=== PATIENT | female | born 1960 | race Caucasian/White ===

== ENCOUNTER → 2017-07-05 20:10 | Outpatient (CLI) | payer OTHER, SELFPAY ==
[2017-07-09 09:05] LABS: HPV Reflexed? NOT INDICATED
== END ==
PROVIDERS: Visit Provider Obstetrics & Gynecology
DX: Z12.4 Encounter for screening for malignant neoplasm of cervix (principal)
CPT/HCPCS: 88175; G0145

== ENCOUNTER 2017-07-07 11:24 | Day surgery (SDC) | payer OTHER, SELFPAY ==
[2017-07-07] VITALS (7 sets, daily range): BP systolic 81–112; BP diastolic 41–72; PULSE 90–103; RESP 18; TEMP 36.9–37.4; O2SAT 95–97
--- NOTE | 2017-07-07 | IMM_PTH ---
PATIENT: AARON REYNOLDS LOC: EN U#:[id number] AGE/SX: 56/F ROOM: RE07/07/[address]: Dr. Gage Resendiz MD : 1960 BED: DIS: 07/07/2017 SPEC #: [id number] RECD: 07/08/17 10:20 STATUS: DAISY RENicole #: [id number] EZEQUIEL: 07/07/17 00:[address]: Gage Resendiz DEPT: IMMUNOHISTOCHEMISTRY RECD BY: Katharine Dean ENTERED: 07/08/17 10:20 SP TYPE: IMMUNO OTHR DR: Dr. Chad Carias MD Tissues: Stomach, NOS Procedures: H Pylori (initial) PHYSICIAN & INSTITUTION [place] [id number] SPECIMEN INFORMATION: Tissue Source: Antral biopsy Clinical Info: GERD Specimen Number: [id number] CPT code: 40370 METHODOLOGY: Deparaffinized sections of prefer/formalin-fixed tissue or PAP/DQ stained slides are incubated with monoclonal/polyclonal antibodies/oligonucleotide probes. Localization is made via biotin free immunoperoxidase method. Appropriate controls are performed and reacted as expected. Results on target cell population are indicated in the following table: RESULTS: ANTIBODY / CLONE RESULT H Pylori (polyclonal) negative These tests were developed and their performance characteristics determined by [facility]. They may not have been cleared or approved by the U.S. Food and Drug Administration. The FDA has determined that such clearance or approval is not necessary. INTERPRETATION: Antral biopsy: Negative for Helicobacter pylori organisms. AM:cecile 07/11/17
--- NOTE | 2017-07-07 | GASB_PTH ---
PATIENT: AARON REYNOLDS LOC: EN U#:[id number] AGE/SX: 56/F ROOM: RE07/07/[address]: Dr. Gage Resendiz MD : 1960 BED: DIS: 07/07/2017 SPEC #: [id number] RECD: 07/07/17 14:37 STATUS: DAISY RUBY #: [id number] EZEQUIEL: 07/07/17 00:[address]: Gage Resendiz DEPT: SURGICAL PATHOLOGY RECD BY: Jose Tucker ENTERED: 07/07/17 14:37 SP TYPE: Gastric Bx OTHR DR: Dr. Chad Carias MD Tissues: Gastric mucous membrane Procedures: Surgery Specimen Level IV HEADER OPERATION: EGD PRE-OP DIAGNOSIS: GERD TISSUE SUBMITTED: Antral biopsy MICROSCOPIC DIAGNOSIS Gastric antrum, biopsy: Gastritis. AM:cecile 07/08/17 COMMENT The results of immunohistochemistry for Helicobacter pylori will be reported separately ([id number]). MICROSCOPIC DESCRIPTION Slides are reviewed. Sections show small collections and groups of plasma cells in the mucosa. Active inflammation is not present. These findings are consistent with mild chronic gastritis. GROSS DESCRIPTION Received in fixative is one container labeled with the patient's name and designated antral biopsy. The specimen consists of two irregular fragments of light oakes soft tissue that in aggregate measure 0.4 x 0.4 x 0.1 cm. The specimen is totally submitted in one cassette. / SJ:rg 07/07/17 TC:3 CPT: 47844
--- NOTE | 2017-07-07 14:11 | PCM.OP.BLANK ---
Operative Report Date of Procedure: 07/07/17 Preop diagnosis: Patient with chest pain and reflux Postop diagnosis: EGD with biopsy diffuse gastritis noted small sliding hiatal hernia noted. Anesthesia: Provided the MAC Instrument: Olympus upper endoscope Informed consent was taken prior to procedure. The patient was brought to the endoscopy suite[ she] was placed left shoulder down.Anesthesia provided the MAC. The scope was passed under direct visualization down into the esophagus. The proximal to mid esophagus appeared normal the distal Z line was intact there is no evidence of Weathers's mucosa there was a small sliding hiatal hernia. The stomach was easily insufflated there were multiple fundic gland polyps noted. The prepyloric area there were erosions noted bulbar duodenum was normal the sweep of duodenum was normal withdrawn back into the stomach retroflexion view the cardia is well-seen there is no evidence of a hiatal hernia there are multiple fundic gland polyps noted. Biopsies of the antral mucosa were taken in the area of erosions for pathology, stomach was decompressed and the patient tolerated procedure well. Impression: Symptomatic reflux with a small sliding hiatal hernia she has some erosions noted in the gastric mucosa ,fundic gland polyps noted Plan: Follow-up the biopsies may continue on a PPI alternate day.
== END 2017-07-07 15:04 | disposition home or self-care (01) ==
LOC: EN 11:25 → ACINP 11:27 → AC 13:21
PROVIDERS: Family Provider Family Medicine; PCP Family Medicine; Visit Provider Internal Medicine Gastroenterology
PROC: 0DJ08ZZ Inspection of Upper Intestinal Tract, Via Natural or Artificial Opening Endoscopic (ICD-10-PCS; CPT 43235; principal; 2017-07-07 13:25)
DX: K29.70 Gastritis, unspecified, without bleeding (principal); K44.9 Diaphragmatic hernia without obstruction or gangrene; R07.9 Chest pain, unspecified; K21.9 Gastro-esophageal reflux disease without esophagitis
CPT/HCPCS: 43239; 88305; 88342; J7120

== ENCOUNTER → 2018-09-19 18:14 | Outpatient (CLI) | payer OTHER, SELFPAY ==
[2018-07-20 11:10] VITALS: BMI 27.1
[2018-09-22 13:23] LABS: HPV Reflexed? NOT INDICATED
== END ==
PROVIDERS: Family Provider Family Medicine; PCP Family Medicine; Referring Provider Obstetrics & Gynecology; Visit Provider Obstetrics & Gynecology
DX: Z12.4 Encounter for screening for malignant neoplasm of cervix (principal)
CPT/HCPCS: 88175; G0145

== ENCOUNTER → 2018-10-10 | Outpatient (CLI) | payer OTHER, SELFPAY ==
[2018-07-20 11:10] VITALS: BMI 27.1
[2018-10-10 17:32] LABS: Absolute Neutrophil Count 3.6 X10^3/uL (2.0-7.7); Basophil# 0.01 X10^3/uL; Basophil% 0.2 % (0-1); Eosinophils% 1.9 % (0-5); Hematocrit 37.7 % (37-47); Hemoglobin 13.2 g/dl (12.0-15.0); Lymphocyte % 23.2 % (19-41); Mean Corpuscular Hgb 28.9 pg (27.0-32.0); Mean Corpuscular Volume 82.7 fL (81-99); Mean Platelet Vol. 10.2 fl (6.2-12.0); Monocyte% 5.8 % (0-10); Neutrophil # 3.56 X10^3/uL (2.7-7.7); Neutrophil % 68.9 % (47-70); POSITIVE COUNT NO; POSITIVE DIFFERENTIAL NO; POSITIVE MORPHOLOGY NO; Platelet Count 253 K/mm3 (150-450); RBC Distribution Width SD 38.8 fl (35.1-43.9); Red Blood Count 4.56 M/mm3 (4.2-5.4); White Blood Count 5.2 K/mm3 (4.4-11.0)
[2018-10-10 17:54] LABS: Anion Gap 9 (5-15); BUN 16 mg/dL (7-18); BUN/Creat Ratio 15.2 RATIO (10-20); Calcium,Total 8.6 mg/dL (8.5-10.1); Chloride 106 mmol/L (98-107); Creatinine, Serum 1.05 mg/dL (0.55-1.02); EST Glomerular Filtration Rate 57 mL/min (>60); Est Glom Filt Rate - Afr Amer 69 mL/min (>60); Glucose 98 mg/dL (74-106); Potassium 3.2 mmol/L (3.5-5.1); Sodium Level 141 mmol/L (136-145)
== END | disposition home or self-care (01) ==
LOC: BFHLAB 16:44
PROVIDERS: Family Provider Family Medicine; PCP Family Medicine; Visit Provider Family Medicine
DX: R10.31 Right lower quadrant pain (principal); I10 Essential (primary) hypertension
CPT/HCPCS: 36415; 80048; 85025

== ENCOUNTER → 2018-10-23 | Outpatient (CLI) | payer OTHER, SELFPAY ==
[2018-07-20 11:10] VITALS: BMI 27.1
--- NOTE | 2018-10-23 13:18 | BI_ITS ---
MAMMOGRAPHY - BILATERAL SCREENING REASON FOR EXAM: Female, 57 years old. Routine annual screening examination. PERTINENT HISTORY: Non-contributory. TECHNIQUE: Digital bilateral breast vini (3D mammographic acquisition) in the CC and MLO projections. 2-D mediolateral oblique (MLO) and craniocaudad (CC) views of both breasts were obtained. CAD: Full Field Digital Mammography with Computer Added Detection was performed. COMPARISON: Comparison is made with prior study dated June 21, 2017 and July 12, 2016. FINDINGS: Breast Composition: There are scattered areas of fibroglandular density. There are no dominant masses or suspicious calcifications. No other significant abnormalities are identified. There has been no significant change since the prior study. BI/SCREENING MAMM (CAD), BILAT IMPRESSION: Stable bilateral screening mammogram. Yearly follow-up mammogram recommended. (A) ASSESSMENT CATEGORY: BIRADS Category 1: Negative. A letter regarding these results will be sent to the patient by the facility within 30 days. Approximately 10% of breast cancers are not detected by mammography. A normal mammogram should not delay biopsy of a clinically suspicious abnormality. [id number] Electronically Signed: Gael Miller, at 15:19 EDT , Service support ,
== END | disposition home or self-care (01) ==
LOC: OPBI 13:17
PROVIDERS: Family Provider Family Medicine; PCP Family Medicine; Referring Provider Obstetrics & Gynecology; Visit Provider Obstetrics & Gynecology
DX: Z12.31 Encounter for screening mammogram for malignant neoplasm of breast (principal)
CPT/HCPCS: 77063; 77067

== ENCOUNTER → 2018-10-31 | Outpatient (CLI) | payer OTHER, SELFPAY ==
[2018-07-20 11:10] VITALS: BMI 27.1
--- NOTE | 2018-10-31 17:40 | CT_ITS ---
STUDY: CT ABDOMEN AND PELVIS WITH CONTRAST REASON FOR EXAM: Female, 57 years old. Right lower quadrant right leg pain RADIATION DOSAGE (If Supplied By Facility): CTDIvol = ( 13.43 ) mGy, DLP = ( 926.71 ) mGycm TECHNIQUE: Transaxial images were obtained from the dome of the diaphragm to the symphysis pubis without oral contrast. 100ml IV/Oral Isovue 300 was administered. Sagittal and coronal images were reconstructed. Individualized dose optimization techniques were used for this CT. COMPARISON: None. FINDINGS: The visualized lung bases are unremarkable. The visualized portions of the heart are within normal limits. Normal liver. Normal gallbladder and extrahepatic biliary system. Normal spleen. Normal pancreas. Normal bilateral adrenal glands. Probable extrarenal pelvis of the right kidney. Normal left kidney. Normal visualized stomach. Normal small intestine. Diffuse mild fecal retention in the colon. The appendix is visualized and appears normal. Normal abdominal aorta. Normal inferior vena cava. Normal retroperitoneum. Normal urinary bladder. Normal uterus. Normal abdominal wall. Normal osseous structures. CT/Abdomen/Pelvis WITH Contrast IMPRESSION: Mild fecal retention diffusely. No bowel obstruction. Electronically Signed: Dewayne Hicks DO at 19:47 EDT Tel [phone], Service support ,
== END | disposition home or self-care (01) ==
LOC: CT 15:41
PROVIDERS: Family Provider Family Medicine; PCP Family Medicine; Referring Provider Family Medicine; Visit Provider Family Medicine
DX: R10.31 Right lower quadrant pain (principal); M79.604 Pain in right leg
CPT/HCPCS: 74177; Q9967

== ENCOUNTER → 2019-11-14 09:01 | Outpatient (CLI) | payer OTHER, SELFPAY ==
[2018-07-20 11:10] VITALS: BMI 27.1
--- NOTE | 2019-11-14 09:07 | RAD_ITS ---
STUDY: X-RAY - SACRUM/COCCYX REASON FOR EXAM: Female, 59 years old. Persistent/worsening pain, s/p fall a year ago, rule out lytic/blastic lesions TECHNIQUE: 3 view(s) of the sacrum and coccyx were obtained. COMPARISON: None. FINDINGS: There is degenerative arthrosis of the bilateral sacroiliac joints. Normal visualized sacral ala and fused sacral bodies. Normal sacrococcygeal junction with a normal angulation. Normal coccygeal segments. The presacral soft tissue structures are unremarkable. RAD/Sacrum-Coccyx min 2 Views IMPRESSION: No acute abnormality is seen. Electronically Signed: Gael Miller, at 10:45 EDT , Service support ,
== END ==
PROVIDERS: PCP Family Medicine; Referring Provider Family Medicine; Visit Provider Family Medicine
DX: M53.3 Sacrococcygeal disorders, not elsewhere classified (principal)
CPT/HCPCS: 72220

== ENCOUNTER → 2020-02-27 07:33 | Outpatient (CLI) | payer OTHER, SELFPAY ==
[2018-07-20 11:10] VITALS: BMI 27.1
--- NOTE | 2020-02-27 07:37 | BI_ITS ---
MAMMOGRAPHY - BILATERAL SCREENING REASON FOR EXAM: Female, 59 years old. Routine annual screening examination. PERTINENT HISTORY: Non-contributory. Occasional left breast tenderness. TECHNIQUE: Digital bilateral breast carlos (3D mammographic acquisition) in the CC and MLO projections. 2-D mediolateral oblique (MLO) and craniocaudad (CC) views of both breasts were obtained. CAD: Full Field Digital Mammography with Computer Added Detection was performed. COMPARISON: Comparison is made with prior study dated 10/23/2018 and 06/21/2017. FINDINGS: Breast Composition: There are scattered areas of fibroglandular density. There are no dominant masses or suspicious calcifications. Stable benign-appearing bilateral axillary lymph nodes. No other significant abnormalities are identified. There has been no significant change since the prior study. BI/SCREEN MAMM (CAD) W/CARLOS BILAT IMPRESSION: Stable bilateral screening mammogram. Yearly follow-up mammogram recommended. (A) ASSESSMENT CATEGORY: BIRADS Category 2: Benign. A letter regarding these results will be sent to the patient by the facility within 30 days. Approximately 10% of breast cancers are not detected by mammography. A normal mammogram should not delay biopsy of a clinically suspicious abnormality. [id number] Electronically Signed: Gael Miller, at 9:39 EDT , Service support ,
== END ==
PROVIDERS: PCP Family Medicine; Referring Provider Obstetrics & Gynecology; Visit Provider Obstetrics & Gynecology
DX: Z12.31 Encounter for screening mammogram for malignant neoplasm of breast (principal)
CPT/HCPCS: 77063; 77067

== ENCOUNTER → 2020-04-08 11:59 | Outpatient (CLI) | payer OTHER, SELFPAY ==
[2018-07-20 11:10] VITALS: BMI 27.1
[2020-04-08 15:35] LABS: Absolute Lymphocyte Count 1.56 X10^3/uL (0.83-4.51); Basophil# 0.04 X10^3/uL; Basophil% 0.6 % (0-1); Eosinophil# 0.16 X10^3/uL; Eosinophils% 2.2 % (0-5); Hemoglobin 14.5 g/dL (12.0-15.0); Lymphocyte # 1.56 X10^3/ul (4.0); Lymphocyte % 21.7 % (19-41); Mean Corp Hgb Conc 34.5 g/dL (32-36); Mean Corpuscular Volume 86.8 fL (81-99); Mean Platelet Vol. 10.8 fl (6.2-12.0); Monocyte# 0.41 X10^3/uL; Monocyte% 5.7 % (0-10); NRBC Flagged by Analyzer 0 % (0-5); Neutrophil # 5.01 X10^3/uL (2.7-7.7); Neutrophil % 69.5 % (47-70); Platelet Count 311 K/mm3 (150-450); RBC Distribution Width CV 12.5 % (11.6-14.6); RBC Distribution Width SD 39.6 fl (35.1-43.9); Red Blood Count 4.84 M/mm3 (4.2-5.4); White Blood Count 7.2 K/mm3 (4.4-11.0)
[2020-04-08 15:49] LABS: AST(SGOT) 25 U/L (15-37); Alanine Aminotransfer ALT/SGPT 50 U/L (13-56); Albumin, Serum 3.9 g/dL (3.2-5.0); Alkaline Phosphatase 106 U/L (45-117); Anion Gap 6 (5-15); BUN 14 mg/dL (7-18); BUN/Creat Ratio 14.2 RATIO (10-20); Calcium,Total 9.2 mg/dL (8.5-10.1); Chloride 103 mmol/L (98-107); Creatinine, Serum 0.98 mg/dL (0.55-1.02); EST Glomerular Filtration Rate 61 mL/min (>60); Est Glom Filt Rate - Afr Amer 74 mL/min (>60); Globulin 3.9 g/dL (2.2-4.2); Glucose 87 mg/dL (74-106); Lipase 323 U/L (73-393); Potassium 3.7 mmol/L (3.5-5.1); Protein, Total 7.8 g/dL (6.4-8.2); Sodium Level 140 mmol/L (136-145)
== END ==
PROVIDERS: PCP Family Medicine; Visit Provider Family Medicine
DX: I10 Essential (primary) hypertension (principal); R10.13 Epigastric pain
CPT/HCPCS: 36415; 80053; 83690; 85025

== ENCOUNTER → 2020-05-13 07:47 | Outpatient (CLI) | payer OTHER, SELFPAY ==
[2018-07-20 11:10] VITALS: BMI 27.1
--- NOTE | 2020-05-13 07:49 | US_ITS ---
STUDY: ABDOMINAL ULTRASOUND - RIGHT UPPER QUADRANT REASON FOR VISIT: Female, 59 years old ABD PAIN -- S/P XENIA TECHNIQUE: Ultrasound evaluation of the right upper quadrant was performed with real-time and static ford-scale imaging. TECHNICAL QUALITY: Adequate. COMPARISON: Comparison is made with prior study dated 07/23/2016. FINDINGS: Liver: The liver measures 13.6 cm. There is increased echogenicity consistent with fatty infiltration. The bile ducts are within normal limits. There is hepatic color flow. The direction of portal flow is hepatopetal. There is no demonstrated mass lesion. Focal fatty sparing is seen in the region of the gallbladder fossa. Gallbladder: The patient is status post cholecystectomy. Common Bile Duct (C.B.D.): The common bile duct measures 8.1 mm. Pancreas: Normal size of the head, body and tail of the pancreas. There is normal echogenicity of the pancreas. There is no demonstrated pancreatic mass or cyst. Right Kidney: Normal size of the right kidney. The right kidney measures 10.3 cm x 4.8 cm x 3.9 cm. Normal renal cortex. The right cortex measures 1.0 cm. There is no demonstrated renal mass or cyst. There is no right hydronephrosis. US/Abdomen Limited IMPRESSION: Fatty infiltration of the liver with focal fatty sparing. Electronically Signed: Gael Miller, at 8:44 EST , Service support ,
== END ==
PROVIDERS: PCP Family Medicine; Referring Provider Internal Medicine Gastroenterology; Visit Provider Internal Medicine Gastroenterology
DX: R10.9 Unspecified abdominal pain (principal)
CPT/HCPCS: 76705

== ENCOUNTER → 2020-05-16 10:05 | Outpatient (CLI) | payer OTHER, SELFPAY ==
[2018-07-20 11:10] VITALS: BMI 27.1
[2020-05-16 12:25] LABS: AST(SGOT) 22 U/L (15-37); Alanine Aminotransfer ALT/SGPT 44 U/L (13-56); Albumin, Serum 3.8 g/dL (3.2-5.0); Alkaline Phosphatase 102 U/L (45-117); Globulin 3.7 g/dL (2.2-4.2); Lipase 266 U/L (73-393); Protein, Total 7.5 g/dL (6.4-8.2)
== END ==
PROVIDERS: PCP Family Medicine; Referring Provider Internal Medicine Gastroenterology; Visit Provider Internal Medicine Gastroenterology
DX: R10.9 Unspecified abdominal pain (principal)
CPT/HCPCS: 36415; 80076; 83690

== ENCOUNTER → 2020-09-15 16:12 | Outpatient (CLI) | payer BC, SELFPAY ==
[2018-07-20 11:10] VITALS: BMI 27.1
[2020-09-15 18:19] LABS: Creatinine, Serum 1.04 mg/dL (0.55-1.02); EST Glomerular Filtration Rate 57 mL/min (>60); Est Glom Filt Rate - Afr Amer 69 mL/min (>60)
== END ==
PROVIDERS: PCP Family Medicine; Referring Provider Otolaryngology; Visit Provider Otolaryngology
DX: H90.42 Sensorineural hearing loss, unilateral, left ear, with unrestricted hearing on the contralateral side (principal)
CPT/HCPCS: 36415; 82565

== ENCOUNTER → 2020-09-25 17:38 | Outpatient (CLI) | payer BC, SELFPAY ==
[2018-07-20 11:10] VITALS: BMI 27.1
--- NOTE | 2020-09-25 17:41 | MRI_ITS ---
STUDY: MRI BRAIN WITH AND WITHOUT CONTRAST (ATTENTION INTERNAL AUDITORY CANALS - I.A.C.''s) REASON FOR EXAM: Female, 59 years old. L HEARING LOSS TECHNIQUE: Standardized multiplanar fat and water weighted pulse sequences were obtained. IV 15ml Dotarem was administered for the contrast portion of the examination. COMPARISON: None. FINDINGS: Normal bilateral temporal bones. Normal bilateral internal auditory canals. There is no demonstrated intracanalicular or cisternal vestibular schwannoma (acoustic neuroma). There is no enhancement of the bilateral VIIth or VIIIth cranial nerves. Normal bilateral cochlea, vestibules and semicircular canals. Normal size of the ventricles and extra-axial spaces for the patient''s age. Normal white matter tracts of the supratentorial brain. Normal bilateral basal ganglia. Normal thalami. Normal flow voids within the major intracranial circulation suggesting patency by spin echo criteria. Normal venous enhancement. There is no enhancing intra-axial or extra-axial abnormality. There is no extra-axial fluid accumulation. Normal sella turcica, pituitary gland, infundibular stalk, optic chiasm and hypothalamus. Normal tectal plate and pineal gland. Normal midbrain, starr and medulla. Normal cerebellum. Normal basal cisterns. No demonstrated orbital abnormality, within the constraints of a routine brain study. Normal visualized paranasal sinuses. Normal calvarium and skull base. Normal visualized soft tissue structures. Normal visualized upper cervical spine. MRI/Brain W/WO Contrast IMPRESSION: Normal unenhanced and enhanced MRI of the bilateral internal auditory canals (I.A.C''s). Electronically Signed: Derrick Stallworth MD at 22:43 EDT , Service support ,
== END ==
PROVIDERS: PCP Family Medicine; Referring Provider Otolaryngology; Visit Provider Otolaryngology
DX: H90.42 Sensorineural hearing loss, unilateral, left ear, with unrestricted hearing on the contralateral side (principal)
CPT/HCPCS: 70553; A9575

== ENCOUNTER → 2021-01-19 14:37 | Outpatient (CLI) | payer BC, SELFPAY ==
[2018-07-20 11:10] VITALS: BMI 27.1
[2021-01-19 18:19] LABS: AST(SGOT) 53 U/L (15-37); Alanine Aminotransfer ALT/SGPT 88 U/L (13-56); Albumin, Serum 4.2 g/dL (3.2-5.0); Alkaline Phosphatase 96 U/L (45-117); Bilirubin, Direct 0.29 mg/dL (0.00-0.30); Globulin 3.6 g/dL (2.2-4.2); Lipase 323 U/L (73-393); Protein, Total 7.8 g/dL (6.4-8.2)
== END ==
PROVIDERS: PCP Family Medicine; Referring Provider Internal Medicine Gastroenterology; Visit Provider Internal Medicine Gastroenterology
DX: R10.9 Unspecified abdominal pain (principal)
CPT/HCPCS: 36415; 80076; 83690

== ENCOUNTER → 2021-03-06 12:07 | Outpatient (CLI) | payer BC, SELFPAY ==
--- NOTE | 2021-03-06 12:08 | BI_ITS ---
MAMMOGRAPHY - BILATERAL SCREENING REASON FOR EXAM: Female, 60 years old. Routine annual screening examination. PERTINENT HISTORY: Non-contributory. TECHNIQUE: Digital bilateral breast carlos (3D mammographic acquisition) in the CC and MLO projections. 2-D mediolateral oblique (MLO) and craniocaudad (CC) views of both breasts were obtained. CAD: Full Field Digital Mammography with Computer Added Detection was performed. COMPARISON: Comparison is made with prior study 02/27/2020 and 10/23/2018. FINDINGS: Breast Composition: There are scattered areas of fibroglandular density. There are no dominant masses or suspicious calcifications. Small benign-appearing bilateral axillary lymph nodes. No other significant abnormalities are identified. There has been no significant change since the prior study. BI/SCRN MAMM (CAD)W/CARLOS BILAT IMPRESSION: Stable bilateral screening mammogram. Yearly follow-up mammogram recommended. (A) ASSESSMENT CATEGORY: BIRADS Category 2: Benign. A letter regarding these results will be sent to the patient by the facility within 30 days. Approximately 10% of breast cancers are not detected by mammography. A normal mammogram should not delay biopsy of a clinically suspicious abnormality. [id number] Electronically Signed: Gael Miller MD at 13:15 EDT , Service support ,
== END ==
PROVIDERS: PCP Family Medicine; Referring Provider Obstetrics & Gynecology; Visit Provider Obstetrics & Gynecology
DX: Z12.31 Encounter for screening mammogram for malignant neoplasm of breast (principal)
CPT/HCPCS: 77063; 77067

== ENCOUNTER → 2022-04-01 | Outpatient (CLI) | payer BC, SELFPAY ==
[2022-04-08 16:02] LABS: HPV APTIMA, High Risk Negative (Negative)
== END | disposition home or self-care (01) ==
LOC: LABSPEC 09:50
PROVIDERS: PCP Family Medicine; Visit Provider Obstetrics & Gynecology
DX: Z12.4 Encounter for screening for malignant neoplasm of cervix (principal)
CPT/HCPCS: 87624; 88175; G0145

== ENCOUNTER → 2022-04-07 | Outpatient (CLI) | payer BC, SELFPAY ==
--- NOTE | 2022-04-07 07:48 | BI_ITS ---
MAMMOGRAPHY - BILATERAL SCREENING REASON FOR EXAM: Female, 61 years old. Routine annual screening examination. PERTINENT HISTORY: Non-contributory. TECHNIQUE: Digital bilateral breast carlos (3D mammographic acquisition) in the CC and MLO projections. 2-D mediolateral oblique (MLO) and craniocaudad (CC) views of both breasts were obtained. CAD: Full Field Digital Mammography with Computer Added Detection was performed. COMPARISON: Comparison is made with prior study dated 03/06/2021 and 02/27/2020. FINDINGS: Breast Composition: There are scattered areas of fibroglandular density. There are no dominant masses or suspicious calcifications. Stable small benign-appearing bilateral axillary lymph nodes. No other significant abnormalities are identified. There has been no significant change since the prior study. BI/SCRN MAMM (CAD)W/CARLOS BILAT IMPRESSION: Stable bilateral screening mammogram. Yearly follow-up mammogram recommended. (A) ASSESSMENT CATEGORY: BIRADS Category 2: Benign. A letter regarding these results will be sent to the patient by the facility within 30 days. Approximately 10% of breast cancers are not detected by mammography. A normal mammogram should not delay biopsy of a clinically suspicious abnormality. [id number] Electronically Signed: Gael Miller MD at 9:14 EDT ,
== END | disposition home or self-care (01) ==
LOC: OPBI 07:46
PROVIDERS: PCP Family Medicine; Visit Provider Obstetrics & Gynecology
DX: Z12.31 Encounter for screening mammogram for malignant neoplasm of breast (principal)
CPT/HCPCS: 77063; 77067

== ENCOUNTER → 2022-05-18 | Outpatient (CLI) | payer BC, SELFPAY ==
--- NOTE | 2022-05-18 16:15 | RAD_ITS ---
STUDY: X-RAY - CERVICAL SPINE REASON FOR EXAM: Female, 61 years old. PAIN TECHNIQUE: 5 view(s) of the cervical spine were obtained. COMPARISON: None FINDINGS: Normal anterior atlantoaxial articulation. Normal odontoid process. Normal cervical lordosis. C5-C6 C6-C7 there is disc space narrowing and spondylosis. There is minimal associated neural foramina narrowing. There is no visualized acute loss of height or alignment. Normal disc space heights. Normal visualized intervertebral neuroforamina. The soft tissue structures are unremarkable. RAD/Cerv Spine 4 or 5 Views IMPRESSION: Degenerative change. No visualized acute loss of height or alignment. Electronically Signed: Jasmin Rizzo MD at 17:56 EST Reading Location ID and State: [facility] / [place] Tel , Service support ,
--- NOTE | 2022-05-18 16:15 | RAD_ITS ---
STUDY: X-RAY - THORACIC SPINE REASON FOR EXAM: Female, 61 years old. PAIN TECHNIQUE: 2 view(s) of the thoracic spine were obtained. COMPARISON: June 30, 2017 thoracic spine x-ray FINDINGS: Normal kyphosis of the thoracic spine. There is no substantial scoliosis. There is minimal spondylosis throughout the thoracic spine without visualized loss of height or alignment. Normal disc space heights. The soft tissue structures are unremarkable. RAD/Thoracic Spine 3 Views IMPRESSION: Mild degenerative change of the thoracic spine. Electronically Signed: Jasmin Rizzo MD at 17:55 EST Reading Location ID and State: [facility] / [place] Tel , Service support ,
== END | disposition home or self-care (01) ==
LOC: MTRAD 16:13
PROVIDERS: PCP Family Medicine; Referring Provider Family Medicine; Visit Provider Family Medicine
DX: M54.6 Pain in thoracic spine (principal); M48.02 Spinal stenosis, cervical region; M47.812 Spondylosis without myelopathy or radiculopathy, cervical region
CPT/HCPCS: 72050; 72072

== ENCOUNTER → 2022-10-12 | Outpatient (CLI) | payer BC, SELFPAY ==
--- NOTE | 2022-10-12 07:20 | US_ITS ---
STUDY: ABDOMINAL ULTRASOUND - LEFT UPPER QUADRANT REASON FOR EXAM: Female, 61 years old. LUQ Pain TECHNIQUE: Transabdominal ultrasound was performed with real-time and static ford scale imaging. TECHNICAL QUALITY: Adequate. COMPARISON: None. FINDINGS: Spleen: Normal size of the spleen. The spleen measures 11.4 cm x 4.4 cm x 4.7 cm. Left Kidney: Normal size of the left kidney. The left kidney measures 10.3 cm x 4.1 cm x 4.9 cm. Normal renal cortex. The left cortex measures 1.6 cm. There is no demonstrated renal mass or cyst. There is no left hydronephrosis. US/Abdomen Limited IMPRESSION: Normal left upper quadrant abdominal ultrasound examination. Electronically Signed: Gael Miller MD at 12:03 EDT ,
== END | disposition home or self-care (01) ==
LOC: US 07:20
PROVIDERS: PCP Internal Medicine; Referring Provider Internal Medicine; Visit Provider Internal Medicine
DX: R10.12 Left upper quadrant pain (principal)
CPT/HCPCS: 76705

== ENCOUNTER → 2023-01-05 | Outpatient (CLI) | payer BC, SELFPAY ==
[2023-01-05 13:08] LABS: Anion Gap 6 (5-15); BUN 16 mg/dL (7-18); Calcium,Total 9.1 mg/dL (8.5-10.1); Chloride 108 mmol/L (98-107); Creatinine, Serum 1.14 mg/dL (0.55-1.02); EST Glomerular Filtration Rate 51 mL/min (>60); Est Glom Filt Rate - Afr Amer 62 mL/min (>60); Glucose 110 mg/dL (74-106); Potassium 3.9 mmol/L (3.5-5.1); Sodium Level 138 mmol/L (136-145); Uric Acid 7.3 mg/dL (2.6-6.0)
== END | disposition home or self-care (01) ==
LOC: BIMLAB 10:57
PROVIDERS: PCP Internal Medicine; Visit Provider Internal Medicine
DX: M10.9 Gout, unspecified (principal); N18.30 Chronic kidney disease, stage 3 unspecified
CPT/HCPCS: 36415; 80048; 84550

== ENCOUNTER → 2023-04-20 | Outpatient (CLI) | payer BC, SELFPAY ==
--- NOTE | 2023-04-20 09:44 | RAD_ITS ---
STUDY: X-RAY - LEFT ELBOW REASON FOR EXAM: Female, 62 years old. Pain following a recent fall. TECHNIQUE: 3 view(s) of the elbow. COMPARISON: None. FINDINGS: Normal visualized humerus, radius and ulna. Normal radiocapitellar and ulnotrochlear articulations. The soft tissue structures are unremarkable. RAD/Elbow min 3 Views IMPRESSION: Normal x-ray examination of the elbow. Electronically Signed: Gael Miller MD at 10:10 EST ,
--- NOTE | 2023-04-20 09:44 | RAD_ITS ---
STUDY: X-RAY - LEFT SHOULDER REASON FOR EXAM: Female, 62 years old. Shoulder pain following a recent fall. TECHNIQUE: 4 view(s) of the shoulder. COMPARISON: None. FINDINGS: Normal glenohumeral articulation. There is degenerative arthrosis of the acromioclavicular joint without inferior osseous spur formation. Normal acromion. Normal humeral head and visualized proximal humerus. The soft tissue structures are unremarkable. Normal visualized pulmonary apex. RAD/Shoulder min 2 Views IMPRESSION: Degenerative changes of the acromial clavicular joint. Electronically Signed: Gael Miller MD at 10:09 [facility] ,
== END | disposition home or self-care (01) ==
PROVIDERS: PCP Internal Medicine; Referring Provider Physician Assistant; Visit Provider Physician Assistant
DX: S59.901A Unspecified injury of right elbow, initial encounter (principal); S49.92XA Unspecified injury of left shoulder and upper arm, initial encounter; S49.91XA Unspecified injury of right shoulder and upper arm, initial encounter; S59.902A Unspecified injury of left elbow, initial encounter
CPT/HCPCS: 73030; 73080

== ENCOUNTER → 2023-04-27 | Outpatient (CLI) | payer BC, SELFPAY ==
[2023-04-27 16:10] LABS: Microalbumin,Random Urine 17.4 mg/L (NO RANGE EST.); Microalbumin:Creatinine Ratio 30.7 mg/g CRE (<30 mg/g CRE)
[2023-04-27 16:15] LABS: Anion Gap 3 (5-15); BUN 19 mg/dL (7-18); BUN/Creat Ratio 16.8 RATIO (10-20); Chloride 106 mmol/L (98-107); Creatinine, Serum 1.13 mg/dL (0.55-1.02); EST Glomerular Filtration Rate 51 mL/min (>60); Est Glom Filt Rate - Afr Amer 62 mL/min (>60); Glucose 100 mg/dL (74-106); Potassium 3.8 mmol/L (3.5-5.1); Sodium Level 141 mmol/L (136-145); Uric Acid 7.1 mg/dL (2.6-6.0)
== END | disposition home or self-care (01) ==
LOC: BIMLAB 14:15
PROVIDERS: PCP Internal Medicine; Referring Provider Internal Medicine; Visit Provider Internal Medicine
DX: I12.9 Hypertensive chronic kidney disease with stage 1 through stage 4 chronic kidney disease, or unspecified chronic kidney disease (principal); N18.30 Chronic kidney disease, stage 3 unspecified
CPT/HCPCS: 36415; 80048; 82043; 82570; 84550

== ENCOUNTER 2023-05-12 11:30 | Outpatient (RCR) | payer BC, SELFPAY ==
--- NOTE | 2023-04-29 09:07 | HP.PTEVAL ---
Patient's Visit Information Visit Information Visit Information: AARON REYNOLDS is a 62 year old F referred to Physical Therapy by ATIF Mcneal with a diagnosis of L shoulder strain.. Date of Evaluation: 04/29/23 Physical Therapist: Mir Spencer, DPT, OCS, CSCS Visit Plan Frequency: 2-3x /Week Duration: 4-6 Weeks Plan: 2-3x/week for 4-6 weeks for 1. activitiy modification , posture adn manual PROM L shoulder 2. US nonthemral to L supra or TENS with ice as needed if painful at rest. 3. scap/postural and RC strength. Subjective Subjective: 2 weeks ago slipped in tub and landed on L arm. Now has pain in L arm b/w shoulder and elbow. Aches much of time. Went [facility] a week later and x rays were Ok. it is improving slowly. Still cannot lift arm out to side. Raising in front is easier but painful. 4/10 at rest most of time. Sometimes doesnt hurt if she is not thinking about it. Was improving until the last 24 hours, drove alot 2 days ago. Sleep is not a big problem but wakes up feeling it. Rolling on it is hard. Employed as a nurse at the hospital , works with hands all day and worse after work but improving overall. Basic ADLs are painful dressing and has to be careful but can do them, Is right handed. Hobbies: Reading is not a problem, yard work can be bothersome but low time of year. Empire decorating will be hard. Denies numbing and tingling. Pain L shoulder/arm: Pain Intensity (Out of 10): 4 Pain Intensity Range: 1 and 7 Objective Objective: L shoulder tender to palpation in supraspinatus and biceps tendon slightly. AROM UE WFL except for L shoulder elevation is slow and painful in abduction especially LLA. flexion is full and painful at end range, er is full but painful end range. IR is full without pain. Most pain is in anterior shoulder and down back of arm. reflexes 2/3 bi and triceps sensation is WFL to gross light touch in UE. Strength wrist adn elbow 4+ and painfree B. scap and cervical aROKM WFL R shoulder elevation 4 and er/ir 4, L shoulder is er 4- and IR 4 and flexion 4- pain and abduction 3+ and pain. - drop arm - er lag - sulcus - labral tests. Balance/Special Test Scores Quick DASH Score: 31.8175 Goals Goal 1:: sleep without pain at night Goal Time Frame: 4-6 Weeks Goal 2:: Painfree at rest and 80% improved in overall pain to 1/10 at worst Goal Time Frame: 4-6 Weeks Goal 3:: I appropriate managment of condition with HEP Goal Time Frame: 4-6 Weeks Goal 4:: Work without inceased pain Goal Time Frame: 4-6 Weeks Goal 5:: quick dash score 15 or better. Goal Time Frame: 4-6 Weeks Rehabilitation Potential Physical Therapy Diagnosis: L shoulder strain, causing difficulty sleeping and moving and pain with work effecting life. Rehabilitation Potential: Good Anticipated Interventions Patient/Client Instruction: Educate patient on: Condition and Risk Factors For the Purpose of:: To decrease pain, To increase ROM, To improve nutrient delivery to tissue, To improve muscle performance and motor function, To increase tolerance to activity/condition/position and To improve ability of physical actions for home/community/work/leisure Therapeutic Exercise to Include: Strength training, Postural training, Passive ROM, Active ROM and Scapular Strength/Stabilization For the Purpose of:: To decrease pain, To decrease swelling/inflammation, To increase ROM, To improve nutrient delivery to tissue, To improve muscle performance and motor function and To increase tolerance to activity/condition/position Manual Therapy Techniques to Include: Mobilization, Passive ROM and Soft tissue mobilization For the Purpose of:: To decrease pain, To decrease swelling/inflammation and To improve nutrient delivery to tissue TENS: Yes Cryotherapy (ice pack, ice massage): Yes Ultrasound (thermal/non thermal): Yes (nonthermal) For the Purpose of:: To decrease pain, To decrease swelling/inflammation and To increase ROM Text: Thank you for the opportunity to evaluate your patient. For Medicare and Medicare HMO plans, please review the plan of care and approve it. It will need to be FAXED BACK to us at [phone] for Medicare purposes. For Medicare only, by signing this I certify the plan of care. Please let me know if there are questions or concerns regarding this plan of care. Physician Signature: Date:
--- NOTE | 2023-05-12 12:16 | HP.PTDCSUM ---
Discharge Summary D/C summary: It has been my pleasure to treat AARON REYNOLDS referred by ATIF Mcneal, with the diagnosis of L shoulder strain. for a total of 5 visit(s). Discharge Date: 05/12/23 Please see the following information for a summary of their discharge status. Subjective Subjective: No better. 80% of time is 4/10 ache in L upper arm and shoulder. Sleeping still very difficult. Not on meds for this. had prednisone initially. No f[facility]u with [facility] but Dr. Matson. Can do her basics at home with care. Trying to do everything. Pain L shoulder/arm: Pain Intensity (Out of 10): 2 Overall Improvement % Improvement: 0 Objective Objective/Function: Full aROM L UE but hesitant past 90 abduction adn flexion shoulder and slow. Good rotations and strength is 3+ flexion abd L and 4 rotations, elevation painful and rotations not so much. - drop arm, - ext rotation lag test. - labral clinical test However pain not improving despite decent strength and ROM. Goals Goal 1:: sleep without pain at night Goal 2:: Painfree at rest and 80% improved in overall pain to 1/10 at worst Goal 3:: I appropriate managment of condition with HEP Goal 4:: Work without inceased pain Goal 5:: quick dash score 15 or better. Plan Plan: Pt to doctor regarding lack of improvement in pain of L shoulder. d/c D/C Information Discharge Comments: to doctor for next medical step(MRI etc) Pt to cotninue HEP in the meantime. pt to call doctor Matson to schedule d/c sentence: If there are questions or concerns regarding this patient's physical therapy, please feel free to call me at [phone]. Thank you for the referral of this patient. Sincerely, Mir Spencer, DPT, OCS, CSCS Balance/Gait/Functional tests Balance/Special Test Scores Quick DASH Score: 29.5450 Improvement % Improvement: 0
== END 2023-05-12 19:00 | disposition home or self-care (01) ==
LOC: PT 11:30
PROVIDERS: PCP Internal Medicine; Referring Provider Physician Assistant; Visit Provider Physician Assistant
DX: S46.912D Strain of unspecified muscle, fascia and tendon at shoulder and upper arm level, left arm, subsequent encounter (principal)
CPT/HCPCS: 97035; 97110; 97161; 97164

== ENCOUNTER → 2023-09-05 | Outpatient (CLI) | payer BC, SELFPAY ==
--- NOTE | 2023-09-05 14:12 | BI_ITS ---
MAMMOGRAPHY - BILATERAL SCREENING REASON FOR EXAM: Female, 62 years old. Routine annual screening examination. PERTINENT HISTORY: Non-contributory. TECHNIQUE: Digital bilateral breast carlos (3D mammographic acquisition) in the CC and MLO projections. 2-D mediolateral oblique (MLO) and craniocaudad (CC) views of both breasts were obtained. CAD: Full Field Digital Mammography with Computer Added Detection was performed. COMPARISON: Comparison is made with prior study April 07, 2022 and March 06, 2021. FINDINGS: Breast Composition: There are scattered areas of fibroglandular density. There are no dominant masses or suspicious calcifications. Stable small benign-appearing bilateral axillary lymph nodes. No other significant abnormalities are identified. There has been no significant change since the prior study. BI/SCRN MAMM (CAD)W/CARLOS BILAT IMPRESSION: Stable bilateral screening mammogram. Yearly follow-up mammogram recommended. (A) ASSESSMENT CATEGORY: BIRADS Category 2: Benign. A letter regarding these results will be sent to the patient by the facility within 30 days. Approximately 10% of breast cancers are not detected by mammography. A normal mammogram should not delay biopsy of a clinically suspicious abnormality. [id number] Electronically Signed: Gael Miller MD at 9:45 EDT ,
== END | disposition home or self-care (01) ==
LOC: OPBI 14:12
PROVIDERS: PCP Internal Medicine; Referring Provider Nurse Practitioner; Visit Provider Nurse Practitioner
DX: Z12.31 Encounter for screening mammogram for malignant neoplasm of breast (principal)
CPT/HCPCS: 77063; 77067

== ENCOUNTER → 2024-02-02 | Outpatient (CLI) | payer MEDICARE, OTHER, SELFPAY ==
--- NOTE | 2024-02-02 08:55 | BD_ITS ---
STUDY: DUAL ENERGY X-RAY ABSORPTIOMETRY / DXA REASON FOR EXAM: Female, 63 years old. Screening for osteoporosis TECHNIQUE: Bone Mineral Density (BMD) measurements of lumbar spine and bilateral hips were obtained. COMPARISON: None. FINDINGS: Lumbar Spine (L1-L4): g/cm2 (0.936) / T-score (-1.0) / Z-score (0.8) Findings are suggestive of osteopenia with a low fracture risk. Left Femur Total: g/cm2 (0.894) / T-score (-0.4) / Z-score (0.8) Left Femoral Neck: g/cm2 (0.720) / T-score (-1.2) / Z-score (0.4) Right Femur Total: g/cm2 (0.856) / T-score (-0.7) / Z-score (0.5) Right Femoral Neck: g/cm2 (0.706) / T-score (-1.3) / Z-score (0.2) BD/Dexa Bone Density Study IMPRESSION: The patient is considered osteopenic as outlined below according to World Franck Organization (WHO) criteria with a low fracture risk. Reference Information: The T-score is the number of standard deviations above or below the standard which is normal for young adults at their peak bone mineral density. The World Health Organization (WHO) interprets the T-scores as follows: Above -1 Normal bone density Between -1 and -2.5 Osteopenia Equal to / or below -2.5 Osteoporosis As a practical clinical guideline, osteopenia may be graded as follows: Mild -1 through -1.5 Moderate -1.6 through -2.0 Severe -2.1 through -2.4 The Z-score is the number of standard deviations above or below age-matched controls. A Z-score of less than -1.5 would be considered abnormal. References: 1. NIH Osteoporosis and Related Bone Diseases www osteo.org 2. International Society for Clinical Densitometry www iscd.org 3. National Osteoporosis Foundation www nof.org Electronically Signed: Gael Miller MD at 9:36 EDT ,
== END | disposition home or self-care (01) ==
LOC: OPBD 08:52
PROVIDERS: PCP Internal Medicine; Referring Provider Nurse Practitioner Women's Health; Visit Provider Nurse Practitioner Women's Health
DX: M81.0 Age-related osteoporosis without current pathological fracture (principal)
CPT/HCPCS: 77080

== ENCOUNTER → 2024-04-11 | Outpatient (CLI) | payer MEDICARE, OTHER, SELFPAY | END | disposition home or self-care (01) | LOC: CVS 10:18 | PROVIDERS: PCP Internal Medicine; Referring Provider Internal Medicine; Visit Provider Internal Medicine | DX: R94.31 Abnormal electrocardiogram [ECG] [EKG] (principal); R06.02 Shortness of breath | CPT/HCPCS: 93017; 93350; Q9957; A4216; C8928 ==

== ENCOUNTER → 2024-07-02 | Outpatient (CLI) | payer MEDICARE, OTHER, SELFPAY ==
[2024-07-02 12:50] LABS: Anion Gap 7 (5-15); BUN 14 mg/dL (7-18); BUN/Creat Ratio 14.4 RATIO (10-20); Calcium,Total 9.2 mg/dL (8.5-10.1); Chloride 109 mmol/L (98-107); Creatinine, Serum 0.97 mg/dL (0.55-1.02); EST Glomerular Filtration Rate 61 mL/min (>60); Est Glom Filt Rate - Afr Amer 74 mL/min (>60); Glucose 102 mg/dL (74-106); Potassium 4.7 mmol/L (3.5-5.1); Sodium Level 141 mmol/L (136-145); Uric Acid 5.9 mg/dL (2.6-6.0)
== END | disposition home or self-care (01) ==
LOC: BIMLAB 08:56
PROVIDERS: PCP Internal Medicine; Referring Provider Internal Medicine; Visit Provider Internal Medicine
DX: I10 Essential (primary) hypertension (principal); M10.9 Gout, unspecified
CPT/HCPCS: 36415; 80048; 84550

== ENCOUNTER → 2024-09-05 | Outpatient (CLI) | payer MEDICARE, OTHER, SELFPAY ==
--- NOTE | 2024-09-05 10:00 | BI_ITS ---
EXAM: SCRN MAMM (CAD)W/CARLOS BILAT 09/05/2024 CLINICAL HISTORY: F, Age 63 y/o , SCREENING FOR BREAST CANCER TECHNIQUE: Bilateral screening digital breast tomosynthesis with 2D and 3D images. Computer aided detection. COMPARISON: Prior exam(s) dated 09/05/2023, 04/07/2022. FINDINGS: TISSUE DENSITY: The breast tissue is composed of scattered area of fibroglandular density. Bilateral Breast Mammographic Findings: No significant masses, calcifications or other abnormalities are identified. BI/SCRN MAMM (CAD)W/CARLOS BILAT IMPRESSION: Right Breast: BIRADS 1 NEGATIVE. Left Breast: BIRADS 1 NEGATIVE. OVERALL FINAL ASSESSMENT: BIRADS 1 NEGATIVE. RECOMMENDATION: Routine annual follow-up in 1 Year A letter with findings and recommendations will be mailed to the patient. Reading Location: [id number]
== END | disposition home or self-care (01) ==
LOC: OPBI 09:57
PROVIDERS: PCP Internal Medicine; Referring Provider Nurse Practitioner Women's Health; Visit Provider Nurse Practitioner Women's Health
DX: Z12.31 Encounter for screening mammogram for malignant neoplasm of breast (principal)
CPT/HCPCS: 77063; 77067

== ENCOUNTER → 2025-05-15 | Outpatient (CLI) | payer MEDICARE, OTHER, SELFPAY ==
--- NOTE | 2025-05-15 06:48 | CT_ITS ---
PROCEDURE: LIMITED CHEST CT CARDIAC ONLY 05/15/2025 REASON FOR EXAM: CARDIAC RISK ASSESEMENT TECHNIQUE: Procedure Code: [id number] Modality: CT Procedure: LIMITED CHEST CT CARDIAC ONLY CONTRAST: None. One or more dose reduction techniques were used (e.g., Automated exposure control, adjustment of the mA and/or kV according to patient size, use of iterative reconstruction technique). RADIATION DOSE SUMMARY: CTDlvol: 12.19 mGy DLP: 195.04 mGycm COMPARISON: None FINDINGS: Mild degree of calcific plaque of the aortic arch. Coronary artery calcification. The heart is nonenlarged. The visualized portions of the lungs are unremarkable. Diffuse fatty infiltration of the liver. CT/Limited Chest CT Cardiac Only IMPRESSION: Coronary artery calcification. Reading Location: [place] [id number]
--- OUTSIDE RECORDS SUMMARY | 2025-05-15 06:49 | XMS RPT_ITS | CCD ---
Author Organization [facility] Care Team Providers Care Pl[employer] Compos[employer] Inspector Name Role Phone SIMEON Ricketts, Love Lee Unavailable Unavailcarloz Mahajan MD, Joel Shultz Unavailable MD Keyshawn, Joel Shultz Unavailable Natalia HENDRIX, Cheyenne Horton Unavailable Unavailable Unavailable Primary Care Provider UnavailDr. Chad Angeles Primary Care Provider Kasandra Michel Attending Provider Unavailable Dr. Chad Carias Referring Provider Dr. Brandon Matson Primary Care Provider [phone] Dr. Brandon Matson Attending Provider [phone] Dr. Brandon Matson Referring Provider [phone] Dr. Brandon Matson Primary Care Provider 1(33 0) Dr. Brandon Matson Attending Provider [phone] Dr. Brandon Matson Referring Provider [phone])2 ATIF Mao Attending Provider Dr. Brandon Matson Primary Care Provider [phone] Dr. Brandon Matson Referring Provider [phone] ATIF Hughes Attending Provider [phone] SALLY WALKER DO Attending Unavailable BRANDON MATSON MD Primary Care Unavailab BRANDON Barber MD Primary Care [phone] Dr. Brandon Matson Primary Care Provider 1(33 0) Dr. Brandon Matson Referring Provider [phone])2 Dr. Brandon Matson Attending Provider [phone])2 ATIF Hughes Attending Provider [phone]) Dano TSE, Dr. Christopher Primary Care Provider Dano TSE, Dr. Christopher Attending Provider 1(33 0) Dano TSE, Dr. Christopher Referring Provider 1(33 0) Carlitos SURGICAL GARMENT FITTER-C, Susan Attending Provider Carlitos SURGICAL GARMENT FITTER-C, Susan Referring Provider Dano TSE, Dr. Christopher Primary Care Provider Assessment, Health Risk Attending Provider Unava ilable Dano TSE, Dr. Christopher Attending Provider 1(33 0) Dano TSE, Dr. Christopher Referring Provider 1(33 0) Oleghe, Efewongbe Primary Care Unavailable Brenda Soto Attending Unavailable Oleghe, Efewongbe Primary Care Unavailable Bryan Kapadia Attending Unavailable Oleghe, Efewongbe Referring Unavailable Oleghe, Efewongbe Primary Care Unavailable Oleghe, Efewongbe Attending Unavailable Oleghe, Efewongbe Referring Unavailable Oleghe, Efewongbe Primary Care Unavailable Oleghe, Efewongbe Attending Unavailable Oleghe, Efewongbe Referring Unavailable Oleghe, Efewongbe Primary Care Unavailable Oleghe, Efewongbe Attending Unavailable Oleghe, Efewongbe Referring Unavailable Carlitos SURGICAL GARMENT FITTER, Susan Attending Unavailable Carlitos SURGICAL GARMENT FITTER, Susan Referring Unavailable Oleghe, Efewongbe Primary Care Unavailable Oleghe, Efewongbe Primary Care Unavailable Assessment, Health Risk Attending Unavaila ble Brule SURGICAL GARMENT FITTER, Susan Attending Unavailable Carlitos SURGICAL GARMENT FITTER, Susan Referring Unavailable Oleghe, Efewongbe Primary Care Unavailable Oleghe, Efewongbe Primary Care Unavailable Oleghe, Efewongbe Attending Unavailable Oleghe, Efewongbe Referring Unavailable Oleghe, Efewongbe Primary Care Unavailable Oleghe, Efewongbe Attending Unavailable Brandon Matson Referring Unavailable Mini Matsonongportillo Primary Care Unavailable Carlitos ADAMS, Susan Attending Unavailable Brandon Matson Referring Unavailable BRANDON MATSON MD Primary Care UnavailSALLY Granados DO Attending Unavailable Allergies Allergy Classification Reported Allergen(s) Allergy Type Date of Onset Reaction(s) Facility (15 sources) amantadine; Translations: [amantadine] drug allergy 08-12-19 17 Other, Hallucinations [facility] Work Phone: (4 sources) Penicillins (Antibiotic) drug allergy 08-12-19 [facility] Work Phone: (4 sources) Sulfonamides (Antibiotic) drug allergy 08-12-19 [facility] Work Phone: (11 sources) Penicillins; Translations: [PENICILLINS] Allergy to substance 08-24-19 06 [facility] Repository (11 sources) Sulfonamides (Antibiotic); Translations: [SULFA (SULFONAMIDE ANTIBIOTICS)] Allergy to substance 08-24-19 06 [facility] Repository (1 source) Penicillins Propensity to adverse reactions 08-24-19 [facility] Work Phone: (1 source) Sulfonamides (Antibiotic) Propensity to adverse reactions 08-24-19 [facility] Work Phone: (1 source) SYMMETRAL [Other] Propensity to adverse reactions 08-24-19 [facility] Work Phone: (1 source) OTHER; Translations: [OTHER] Propensity to adverse reactions (disorder) 08-24-19 [facility] Repository (1 source) Penicillins Drug allergy (disorder) 12-06-19 [facility] (1 source) Sulfonamides (Antibiotic) Drug allergy (disorder) 12-06-19 [facility] Repository Medications Current Medications Medication Drug Class(es) Dates Sig (Normalized) Sig (Original) allopurinol 100 mg oral tablet (20 sources) Xanthine Oxidase Inhibitor Start: 11-26-2024 take 2 tablets by mouth once daily Allopurinol 100 mg tablet Active 200 mg PO daily 60 1 November 26, 2024 12:00am Gout Gout, unspecified Start: 04-27-2023 End: 11-26-2024 take 1 tablet by mouth once daily Allopurinol 200 mg tablet Discontinued 200 mg PO DAILY 90 2 November 22, 2024 6:27pm November 26, 2024 11:04am Start: 04-27-2023 End: 04-27-2023 take 1 tablet by mouth once daily Allopurinol 100 mg tablet Discontinued 100 mg PO DAILY 60 2 April 27, 2023 3:17pm April 27, 2023 6:53pm Start: 01-06-2023 End: 04-20-2023 take 1 tablet by mouth once daily Allopurinol 100 mg tablet Discontinued 100 mg PO DAILY 60 0 January 06, 2023 12:00am April 20, 2023 10:31am betamethasone 0.0005 mg/mg topical ointment (1 source) Corticosteroid Start: 12-05-2024 Betamethasone Dipropionate 0.05 % ointment Active 1 NMA TOPICAL TWICE A DAY as needed for itching 15 December 05, 2024 12:00am nitrofurantoin, macrocrystals 25 mg / nitrofurantoin, monohydrate 75 mg oral capsule (1 source) Nitrofuran Antibacterial Start: 08-23-2022 End: 08-28-2022 take 1 capsule by mouth twice daily at mealtime nitrofurantoin monohydrate and macrocrystal (MACROBID) 100 mg capsule Indications: Burning with urination Take 1 capsule by mouth twice daily with meals for 5 days. 10 capsule 0 08/23/2022 08/28/2022 Active Comment on above: Take 1 capsule by [facility] twice daily with meals for 5 days. Completed/Discontinued Medications Medication Drug Class(es) Dates Sig (Normalized) Sig (Original) amLODIPine 5 mg oral tablet (15 sources) Dihydropyridine Calcium Channel Kushal Start: 04-02-2024 End: 08-08-2024 take 1 tablet by mouth once daily Amlodipine 5 mg tablet Discontinued 5 mg PO daily 90 1 August 08, 2024 2:21pm August 08, 2024 4:52pm aspirin 81 mg delayed release oral tablet (14 sources) Platelet Aggregation Inhibitor, Nonsteroidal Anti-inflammatory Drug Start: 08-11-2016 take 1 tablet by mouth once daily ASPIRIN EC 81 MG TBEC One tablet by mouth daily ASPIRIN [id number] Love Ricketts RN Start: 07-08-2016 End: 07-20-2018 take 1 tablet by mouth once daily Aspirin 81 MG tablet,chewable Discontinued 81 mg PO DAILY@0800 0 July 08, 2016 1:00am July 20, 2018 12:11pm clopidogrel 75 mg oral tablet (4 sources) [id number] Platelet Inhibitor Start: 02-10-2017 take 1 tablet by mouth once daily PLAVIX 75 MG TABS One tablet by mouth daily CLOPIDOGREL BISULFATE [id number] Joel Mahajan MD codeine phosphate 2 mg/ml / guaiFENesin 20 mg/ml oral solution (1 source) Opioid Agonist Start: 03-26-2015 End: 08-23-2022 take 5-10 mL by mouth every six hours as needed for cough and cough codeine-guaiFENesin (ROBITUSSIN AC) 10-100 mg/5 mL syrup Indications: Cough Take 5-10 mL by mouth four times daily as needed for Cough. May cause drowsiness. 120 mL 0 03/26/2015 08/23/2022 Discontinued Comment on above: Take 5-10 mL by mout h four times daily as needed for Cough. May cause drowsiness. hydroCHLOROthiazide 25 mg oral tablet (8 sources) Thiazide Diuretic Start: 09-01-2022 End: 10-07-2022 take 1 tablet by mouth once daily Hydrochlorothiazide 25 mg tablet Discontinued 25 mg PO DAILY September 01, 2022 12:00am October 07, 2022 2:31pm OLMESARTAN MEDOXOMIL-HCTZ (15 sources) Thiazide Diuretic, Angiotensin 2 Receptor Kushal Start: 08-11-2016 take 1 tablet by mouth once daily BENICAR HCT 20-12.5 MG TABS One tablet by mouth daily OLMESARTAN MEDOXOMIL-HCTZ [id number] Love Ricketts RN Start: 07-07-2016 End: 09-01-2022 take 1 tablet by mouth once daily Olmesartan-Hydrochlorothiazide Discontin ued 1 TABLET PO DAILY July 07, 2016 1:00am September 01, 2022 4:28pm Start: 11-06-2009 End: 09-01-2022 Olmesartan-Hydrochlorothiazi de 1 TAB tablet Discontinued 1 {tbl} PO DAILY July 07, 2016 1:00am September 01, 2022 4:28pm Comment on above: Take one(1) tablet d aily. ketorolac tromethamine 10 mg oral tablet (1 source) Nonsteroidal Anti-inflammatory Drug, Cyclooxygenase Inhibitor Start: 04-17-20 End: 08-24-19 take 1 tablet by mouth every six hours as needed ketorolac 10 mg tablet Take 1 tablet by mouth every 6 hours as needed. 0 04/17/2012 08/23/2022 Discontinued Comment on above: Take 1 tablet by janet every 6 hours as needed. magnesium sulfate 100 mg oral capsule (3 sources) Start: 12-05-19 End: 12-06-19 take 1 capsule by mouth once daily Magnesium Sulfate 100 mg capsule Discontinued 100 mg PO DAILY December 05, 2023 12:00am December 05, 2024 8:13am Nirmatrelvir-Ritonav ir (6 sources) Start: 01-16-20 End: 04-20-20 Nirmatrelvir-Ritonav ir (Paxlovid) 300 mg (150 mg x 2)-100 mg tablets,dose pack Discontinued 0 PO .COMPLEX 30 January 15, 2023 12:00am April 20, 2023 10:30am take TWO 150 mg tablets of nirmatrelvir with ONE 100 mg tablet of ritonavir twice daily for 5 days PO Start: 01-15-2023 End: 04-20-2023 Nirmatrelvir-Ritonavir (Paxl ovid) 300 mg (150 mg x 2)-100 mg tablets,dose pack Discontinued 0 PO .COMPLEX January 15, 2023 12:00am April 20, 2023 10:30am take TWO 150 mg tablets of nirmatrelvir with ONE 100 mg tablet of ritonavir twice daily for 5 days PO Start: 01-15-2023 End: 04-20-2023 Nirmatrelvir-Ritonavir (Paxl ovid) 300 mg (150 mg x 2)-100 mg tablets,dose pack Discontinued 0 PO .COMPLEX January 14, 2023 11:00pm April 20, 2023 9:30am take TWO 150 mg tablets of nirmatrelvir with ONE 100 mg tablet of ritonavir twice daily for 5 days PO olmesartan medoxomil 20 mg oral tablet (20 sources) Angiotensin 2 Receptor Kushal Start: 09-01-2022 End: 08-31-2024 take 1 tablet by mouth twice daily Olmesartan 20 mg tablet Discontinued 20 mg PO TWICE A DAY 180 0 May 25, 2024 12:46pm August 31, 2024 10:53am pantoprazole 40 mg delayed release oral tablet (20 sources) Proton Pump Inhibitor Start: 08-11-2016 take 1 tablet by mouth once daily PROTONIX 40 MG TBEC One tablet by mouth daily PANTOPRAZOLE SODIUM [id number] Love Ricketts RN Start: 11-06-2009 End: 08-31-2024 take 1 tablet by mouth once daily Pantoprazole 40 mg tablet,delayed release (DR/EC) Discontinued 40 mg PO DAILY 90 1 September 07, 2023 5:30pm November 04, 2023 1:47pm Comment on above: Take one(1) tablet d aily. POTASSIUM CHLORIDE (2 sources) Start: 7 take 1 tablet by mouth once daily KLOR-CON 10 10 MEQ CR-TABS One tablet by mouth daily POTASSIUM CHLORIDE [id number] Joel Mahajan MD predniSONE 10 mg oral tablet (6 sources) Start: 3 End: 3 take 4 tablets by mouth once daily, then take 3 tablets by mouth once daily, then take 2 tablets by mouth once daily, then take 1 tablet by mouth once daily Prednisone 10 mg tablet Discontinued 10 mg PO As Directed 30 April 20, 2023 1:00am April 27, 2023 2:50pm 4 tablets daily x3 days, then 3 tabs daily x3 days, then 2 tabs daily x3 days, then 1 tablet daily x3 days 24 hr propranolol hydrochloride 60 mg extended release oral capsule (20 sources) beta-Adrenergic Kushal Start: 4 End: 5 take 1 capsule by mouth twice daily Propranolol 60 mg capsule,extended release 24 hr Discontinued 60 mg PO TWICE A DAY 180 May 24, 2024 11:57am July 02, 2024 9:37am Start: 10-07-2022 End: 01-05-2023 take 1 capsule by mouth every twenty-four hours at bedtime Propranolol 80 mg capsule,extended release 24 hr Discontinued 80 mg PO AT BEDTIME 60 1 October 07, 2022 12:00am January 05, 2023 10:49am Start: 10-07-2022 End: 04-17-2024 take 1 capsule by mouth twice daily Propranolol 80 mg capsule,extended release 24 hr Discontinued 80 mg PO TWICE A DAY 180 90 0 March 15, 2024 6:49pm June 12, 2024 1:00am April 17, 2024 3:05pm SUMAtriptan 100 mg oral tablet (20 sources) Serotonin-1b and Serotonin-1d Receptor Agonist Start: 10-07-2022 End: 06-07-2024 take 1 tablet by mouth once as needed for headache Sumatriptan Succinate 100 mg tablet Discontinued 100 mg PO ONCE as needed for migraine headache 9 0 May 25, 2024 12:46pm June 07, 2024 2:00pm topiramate 50 mg oral tablet (15 sources) Start: 07-07-2016 End: 09-01-2022 take 1 tablet by mouth twice daily Topiramate 50 MG tablet Discontinued 50 mg PO TWICE A DAY July 07, 2016 1:00am September 01, 2022 4:29pm Start: 11-06-2009 End: 08-23-2022 TOPIRAMATE 100 MG TAB Take o ne(1) tablet daily. 0 11/06/2009 08/23/2022 Discontinued Comment on above: Take one(1) tablet d aily. Problems Active Problems Problem Classification Problem Date Documented Date Episodic/Chronic Abdominal pain (10 sources) Left upper quadrant pain; Translations: [Left upper quadrant pain] 10-07-2022 Episodic Biliary tract disease (10 sources) Gallstone; Translations: [Calculus of gallbladder without cholecystitis without obstruction] Onset: 0 11-06-2009 Episodic Blindness and vision defects (8 sources) Disorder of vision; Translations: [Unspecified visual loss] 09-01-2022 Chronic Comment on above: uses reading glasses Chronic kidney disease (10 sources) Chronic kidney disease stage 3; Translations: [Stage 3 chronic kidney disease] 10-07-2022 Chronic Coronary atherosclerosis and other heart disease (10 sources) Angina pectoris; Translations: [Other forms of angina pectoris] 08-21-2017 Chronic Diabetes mellitus without complication (8 sources) Hyperglycemia; Translations: [Hyperglycemia, unspecified] 10-07-2022 Episodic E Codes: Fall (1 source) Fall in (into) shower or empty bathtub, subsequent encounter; Translations: [Fall in bath or shower (finding)] Episodic Esophageal disorders (12 sources) Gastroesophageal reflux disease; Translations: [Gastro-esophageal reflux disease without esophagitis] 08-21-2017 Chronic Essential hypertension (20 sources) Hypertensive disorder; Translations: [Essential (primary) hypertension] Onset: 7 08-11-2016 Chronic Genitourinary symptoms and ill-defined conditions (1 source) Scalding pain on urination ; Translations: [Dysuria] Episodic Gout and other crystal arthropathies (14 sources) Gout; Translations: [Gout, unspecified] Onset: 5 01-05-2023 Chronic Headache; including migraine (16 sources) Migraine; Translations: [Migraine, unspecified, not intractable, without status migrainosus] 10-07-2022 Chronic Osteoporosis (1 source) Age-related osteoporosis without current pathological fracture; Translations: [Age-related osteoporosis without current pathological fracture] Onset: Chronic Other bone disease and musculoskeletal deformities (3 sources) Osteopenia; Translations: [Other specified disorders of bone density and structure, unspecified site] 02-06-2024 Episodic Comment on above: BMD due 2025 Other connective tissue disease (8 sources) Triggering of digit; Translations: [Trigger finger, unspecified finger] 10-07-2022 Episodic Other connective tissue disease (2 sources) Trigger finger, unspecified finger; Translations: [Trigger finger (acquired)] 10-07-2022 Episodic Other connective tissue disease (6 sources) Pain in left arm; Translations: [Pain in left arm] 04-27-2023 Episodic Other connective tissue disease (5 sources) Rotator cuff impingement syndrome; Translations: [Impingement syndrome of left shoulder] 05-26-2023 Episodic Comment on above: Kenalog 40mg/mlNDC 0 [id number] Lot: [id number]: Jun 2024 Other connective tissue disease (2 sources) Impingement syndrome of left shoulder; Translations: [Disorders of bursae and tendons in shoulder region, unspecified] 05-18-2023 Episodic Other connective tissue disease (1 source) Impingement syndrome of left shoulder region; Translations: [Impingement syndrome of left shoulder] Episodic Other ear and sense organ disorders (7 sources) Impacted cerumen; Translations: [Impacted cerumen, bilateral] 07-20-2018 Episodic Other ear and sense organ disorders (2 sources) Bilateral hearing loss; Translations: [Impacted cerumen, bilateral] 01-19-2024 Episodic Other liver diseases (8 sources) Disease of liver; Translations: [Liver disease, unspecified] 09-01-2022 Chronic Other lower respiratory disease (4 sources) Dyspnea; Translations: [Dyspnea, unspecified] 04-02-2024 Episodic Other nutritional; endocrine; and metabolic disorders (8 sources) Body mass index 30+ - obesity; Translations: [Obesity, unspecified] 10-07-2022 Chronic Other nutritional; endocrine; and metabolic disorders (2 sources) Obesity, unspecified; Translations: [Obesity, unspecified] 10-07-2022 Chronic Other nutritional; endocrine; and metabolic disorders (3 sources) Gilbert's syndrome; Translations: [Gilbert syndrome] 11-04-2023 Chronic Other nutritional; endocrine; and metabolic disorders (8 sources) Hyperuricemia without signs of inflammatory arthritis and tophaceous disease; Translations: [Hyperuricemia without signs of inflammatory arthritis and tophaceous disease] 10-07-2022 Episodic Other nutritional; endocrine; and metabolic disorders (2 sources) Hyperuricemia without signs of inflammatory arthritis and tophaceous disease; Translations: [Other abnormal blood chemistry] 10-07-2022 Episodic Other screening for suspected conditions (not mental disorders or infectious disease) (7 sources) Electrocardiogram abnormal; Translations: [Abnormal electrocardiogram [ECG] [EKG]] Onset: 7 02-10-2017 Episodic Other screening for suspected conditions (not mental disorders or infectious disease) (3 sources) Patient encounter status; Translations: [Encounter for other screening for malignant neoplasm of breast] Onset: 4 08-31-2023 Episodic Residual codes; unclassified (10 sources) Family history of coronary arteriosclerosis; Translations: [Family history of ischemic heart disease and other diseases of the circulatory system] 08-21-2017 Episodic Residual codes; unclassified (1 source) Past history of procedure; Translations: [Other specified postprocedural states] Episodic Spondylosis; intervertebral disc disorders; other back problems (10 sources) Backache; Translations: [Dorsalgia, unspecified] 08-21-2017 Episodic Sprains and strains (17 sources) Shoulder strain; Translations: [Strain of unspecified muscle, fascia and tendon at shoulder and upper arm level, left arm, initial encounter] 04-20-2023 Episodic Urinary tract infections (5 sources) Urinary tract infectious disease; Translations: [Urinary tract infection, site not specified] 09-01-2022 Episodic Past or Other Problems Problem Classification Problem Date Documented Date Episodic/Chronic Nonmalignant breast conditions (1 source) Pain of breast; Translations: [Mastodynia] Onset: 08-23-2005 08-23-2005 Episodic Nonspecific chest pain (4 sources) Chest pain; Translations: [Chest pain, unspecified] Onset: 08-11-2016 08-11-2016 Episodic Other connective tissue disease (2 sources) Pain in left arm; Translations: [Pain in limb] 04-27-2023 Episodic Other nutritional; endocrine; and metabolic disorders (4 sources) Body mass index (BMI) 25.0-25.9, adult; Translations: [Body mass index (BMI) 25.0-25.9, adult] Onset: 08-12-2016 08-12-2016 Episodic Residual codes; unclassified (4 sources) Family history of ischemic heart disease and other diseases of the circulatory system; Translations: [Family history of ischemic heart disease and other diseases of the circulatory system] Onset: 08-11-2016 08-11-2016 Episodic Residual codes; unclassified (10 sources) History of cardiac catheterization; Translations: [Other specified postprocedural states] Onset: 02-04-2017 08-21-2017 Episodic Results Test Name Value Interpretation Reference Range Facility Supervisor Production Office Visit Reporton 12-05-2024 Supervisor Production Office Visit Report [facility]'[address], [address] [place] [address] OFFICE VISIT Date of Service: 12/05/24 MR#: [id number] Acct: [id number] Name: AARON REYNOLDS Rep #: [id number] : 1960 Provider: SELVIN coelho Age/Sex: 64/F Location: 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) Chief Complaint: Annual Engine Oiler Required: No Is patient in pain?: No Allergies Penicillins (PCN) Allergy (Intermediate, Verified 12/05/24 08:03) Hives Sulfa (Sulfonamide Antibiotics) Allergy (Mild, Verified 12/05/24 08:03) Hives amantadine (From Symmetrel) Adverse Reaction (Severe, Verified 12/05/24 08:03) Hallucinations Medications ???Medication ???Instructions ???Recorded ???Confirmed ???Type sumatriptan succinate 100 mg tablet 100 mg PO ONCE PRN migraine 07/3112/05/24 Rx headache #9 tabs propranolol 60 mg capsule,24 60 mg PO BID #60 caps 07/02/2407/31 Rx hr,extended release amlodipine 5 mg tablet 5 mg PO QDAY #90 tabs 08/08/2407/31 Rx olmesartan 20 mg tablet 20 mg PO BID #180 tabs 08/31/24 Rx pantoprazole 40 mg tablet,delayed 40 mg PO DAILY #90 tabs 08/31/24 12/05/24 Rx release allopurinol 100 mg tablet 200 mg (2 x 100 mg) PO QDAY #60 12/05/24 Rx tabs betamethasone dipropionate 0.05 % 1 applic topical BID PRN itching 12/05/24 12/05/24 Rx topical ointment #15 grams Is last menstrual period known: No Post menopausal: Yes Patient : No : No PFSH Medical History Abnormal EKG Dyspnea [place] disease Pain of left upper extremity Strain of left elbow Left shoulder strain Gout Obesity (BMI 30-39.9) Hyperuricemia without signs inflammatory arthritis/tophaceous disease Blood glucose elevated CKD (chronic kidney disease), stage III LUQ pain Trigger finger Migraines Vision problems Liver disease Gallstones Family history of coronary arteriosclerosis GERD (gastroesophageal reflux disease) Hypertension Surgical History History of umbilical hernia repair H/O dilation and curettage History of tonsillectomy Hx of cholecystectomy History of left heart catheterization ( 02/18/17) Family History Father CAD (coronary artery disease) Heart disease Myocardial infarction CVA (cerebral vascular accident) Post heart bypass Arthritis Mother CAD (coronary artery disease) Heart disease Myocardial infarction, Onset Age: 68 Diabetes Cancer Melanoma Hypertension Melanoma Brother Cancer Prostate Hypertension Social History household members: spouse current occupational status: employed current occupation: PRN @ [employer] Smoking Status: Never smoker alcohol intake: current alcohol intake frequency: holidays/special occasions only Alcohol type: beer substance use type: does not use what type of physical activity do you participate in: walking and other details: HIT frequency: 3-4 times per week seatbelt use: always do you feel safe at home: Yes additional social history: -Aaron- Owns [employer] History 5 Elective abortions 1 Hx Para 4 Spontaneous abortions Hx # Term Pregnancies Ectopic pregnancies Hx # Pregnancies Multiple births # of living children 4 Past Pregnancies Del. Date Name GA/Weeks Outcome Route Bth Weight Infant Gen Labor Lgth Anesthesia Del [facility] Provider FOB Unknown Nehal Unknown Peter Unknown Sav Unknown Sangeeta HPI Encounter for routine gynecological examination Details: AARON REYNOLDS is a 64 year old who presents for annual exam. Occa external vaginal itching, comes and goes Last PAP: 2021 History of abnormal PAP: no Last mammogram: 09/2024 History of abnormal mammogram: no Colon cancer screenin Other preventative health care screenings: Dano Female Reproductive History Questions: metorrhagia: No, sexually active: Yes, dyspareunia: No (lubriant) and PCB: No ROS Const Constitutional: Denies fatigue, weight gain or weight loss Cardio Card: Denies chest pain Resp Resp: Denies cough or dyspnea on exertion GI GI: Denies abdominal pain, bloating, change in stool character, constipation or vo (more content not included)... Normal [facility] Internal Medicine Office Vis esteban 11-22-2024 Internal Medicine Office Visit [facility] [address] [place] [address] OFFICE VISIT Date of Service: 11/22/24 MR#: [id number] Acct: [id number] Name: AARON REYNOLDS Rep #: [id number] : 1960 Provider: Dr. Brandon castorena MD Age/Sex: 64/F Location: [facility] [place] Status: Signed Intake Vital Signs 07/02/24 08:23 11/22/24 18:12 Height 5 ft 3 in 5 ft 3 in Weight: 175 lb 182 lb 6 oz BMI 30.9 32.3 BP 124/62 H 128/78 H Blood Pressure Location Lt brachial Lt brachial Position Sitting Sitting Respiration 16 16 Pulse 62 55 L Pulse Source Monitor Monitor Temp 97.2 F L 97.2 F L Temp Source Temporal Temporal Pulse Oximetry (%) 98 Oxygen Delivery Method room air Intake Visit Reasons: 4 M FU Chief Complaint: Follow-up Engine Oiler Required: No Accompanied by: Self Is patient in pain?: No Allergies Penicillins (PCN) Allergy (Intermediate, Verified 11/22/24 18:07) Hives Sulfa (Sulfonamide Antibiotics) Allergy (Mild, Verified 11/22/24 18:07) Hives amantadine (From Symmetrel) Adverse Reaction (Severe, Verified 11/22/24 18:07) Hallucinations Medications ???Medication ???Instructions ???Recorded ???Confirmed ???Type magnesium sulfate 100 mg capsule 100 mg PO DAILY 12/05/23 11/22/24 History sumatriptan succinate 100 mg tablet 100 mg PO ONCE PRN migraine 07/3111/22/24 Rx headache #9 tabs propranolol 60 mg capsule,24 60 mg PO BID #60 caps 07/02/24 Rx hr,extended release amlodipine 5 mg tablet 5 mg PO QDAY #90 tabs 08/08/24 Rx olmesartan 20 mg tablet 20 mg PO BID #180 tabs 08/31/24 Rx pantoprazole 40 mg tablet,delayed 40 mg PO DAILY #90 tabs 08/31/24 11/22/24 Rx release allopurinol 200 mg tablet 200 mg PO DAILY #90 tabs 11/22/24 11/22/24 Rx Have you fallen in the past year?: No PFSH Medical History (Updated 11/22/24 @ 18:[address] Brandon Matson MD) Health care maintenance Abnormal EKG Dyspnea [place] disease Pain of left upper extremity Strain of left elbow Left shoulder strain Gout Obesity (BMI 30-39.9) Hyperuricemia without signs inflammatory arthritis/tophaceous disease Blood glucose elevated CKD (chronic kidney disease), stage III LUQ pain Trigger finger Migraines Vision problems Liver disease Gallstones Family history of coronary arteriosclerosis GERD (gastroesophageal reflux disease) Hypertension Surgical History History of umbilical hernia repair H/O dilation and curettage History of tonsillectomy Hx of cholecystectomy History of left heart catheterization ( 02/18/17) Family History Father CAD (coronary artery disease) Heart disease Myocardial infarction CVA (cerebral vascular accident) Post heart bypass Arthritis Mother CAD (coronary artery disease) Heart disease Myocardial infarction, Onset Age: 68 Diabetes Cancer Melanoma Hypertension Melanoma Brother Cancer Prostate Hypertension Social History household members: spouse current occupational status: employed current occupation: PRN @ [employer] Smoking Status: Never smoker alcohol intake: current alcohol intake frequency: holidays/special occasions only Alcohol type: beer substance use type: does not use what type of physical activity do you participate in: walking and other details: HIT frequency: 3-4 times per week seatbelt use: always do you feel safe at home: Yes additional social history: -Aaron- Owns [employer] Female Reproductive History Menstrual Ab induced: 1 HPI HPI Chief Complaint: Follow-up Details: Aaron Reynolds, is a 64-year-old female presenting with a routine check-up and management of chronic conditions. She reports a history of hypertension, with recent home blood pressure readings in the 120s/70s to 80s range, although she misplaced her cuff temporarily due to home remodeling. She is currently on amlodipine 25 mg and propranolol 60 mg twice daily, which she reports as effective. The patient also has a history of migraines, which have been well-controlled with her current medication regimen. She occasionally experiences mild pressure headaches but has not required migraine-specific medication since May. The patient has hyperuricemia and had previously discontinued allopurinol but plans to resume it following a discussion about its benefits. She acknowledges the need for adherence to her medication regimen to manage her uric acid levels effectively. Preventative care measures include a recent mammogram, which showed no abnormalities, and regular dermatology visits for skin checks. Attestation: Documentation on this patient (more content not included)... Normal [facility] Absolute lymphocyte countOrd ered By: HEALTH ASSESSMENT on 11-19-2024 Lymphocytes Auto (Unsp spec) [#/Vol] 1.61 10*3/uL 0.83-4.51 [facility] Absolute neutrophil countOrd ered By: HEALTH ASSESSMENT on 11-19-2024 Neutrophils (Bld) [#/Vol] 3.8 10*3/uL 2.0-7.7 [facility] Absolute nucleated red blood cell countOrdered By: HEALTH ASSESSMENT on 11-19-2024 Nucleated RBC (Bld) [#/Vol] 0.00 10*3/uL 0-5 [facility] Anion gap in Serum or Plasma Ordered By: HEALTH ASSESSMENT on 11-19-2024 Anion gap [Moles/Vol] 10 mmol/L 5-15 [facility] BUN/creatinine ratioOrdered By: HEALTH ASSESSMENT on 11-19-2024 Urea nitrogen/Creatinine [Mass ratio] 16.0 mg/mg 10-20 [facility] Bilirubin directOrdered By: HEALTH ASSESSMENT on 11-19-2024 Bilirubin.direct [Mass/Vol] 0.39 mg/dL High 0.00-0.30 [facility] Bilirubin, totalOrdered By: HEALTH ASSESSMENT on 11-19-2024 Bilirubin [Mass/Vol] 1.14 mg/dL 0.00-1.30 [facility] CBC, Employeeon 11-19-2024 Absolute Lymph 1.61 X10 3/uL Normal 0.83-4.51 [facility] Comment on above: Performed By: #### L 500.2900, L100.0200 #### [facility] [address] [place], [address] Absolute Neut 3.8 X10 3/uL Normal 2.0-7.7 [facility] Comment on above: Performed By: #### L 500.2900, L100.0200 #### [facility] [address] [place], [address] Basophils/100 WBC (Bld) 0.6 % Normal 0-1 [facility] Comment on above: Performed By: #### L 500.2900, L100.0200 #### [facility] [address] [place], [address] Eosinophils/100 WBC (Bld) 3.1 % Normal 0-5 [facility] Comment on above: Performed By: #### L 500.2900, L100.0200 #### [facility] [address] [place], [address] Erythrocyte distribution width (RBC) [Ratio] 12.9 % Normal 11.6-14.6 [facility] Comment on above: Performed By: #### L 500.2900, L100.0200 #### [facility] [address] [place], [address] Hematocrit (Bld) [Volume fraction] 38.6 % Normal 37-47 [facility] Comment on above: Performed By: #### L 500.2900, L100.0200 #### [facility] [address] [place], [address] Hemoglobin (Bld) [Mass/Vol] 13.5 g/dL Normal 12.0-15.0 [facility] Comment on above: Performed By: #### L 500.2900, L100.0200 #### [facility] [address] [place], [address] Lymphocytes/100 WBC (Bld) 26.1 % Normal 19-41 [facility] Comment on above: Performed By: #### L 500.2900, L100.0200 #### [facility] [address] [place], [address] MCH (RBC) [Entitic mass] 29.5 pg Normal 27.0-32.0 [facility] Comment on above: Performed By: #### L 500.2900, L100.0200 #### [facility] [address] [place], [address] MCHC (RBC) [Mass/Vol] 35.0 g/dL Normal 32-36 [facility] Comment on above: Performed By: #### L 500.2900, L100.0200 #### [facility] [address] [place], [address] MCV (RBC) [Entitic vol] 84.3 fL Normal 81-99 [facility] Comment on above: Performed By: #### L 500.2900, L100.0200 #### [facility] [address] [place], [address] Monocytes/100 WBC (Bld) 7.9 % Normal 0-10 [facility] Comment on above: Performed By: #### L 500.2900, L100.0200 #### [facility] [address] [place], [address] Neutrophils/100 WBC (Bld) 62.0 % Normal 47-70 [facility] Comment on above: Performed By: #### L 500.2900, L100.0200 #### [facility] [address] [place] [place], [address] NRBC # 0.00 10 3/uL Normal 0-5 [facility] Comment on above: Performed By: #### L 500.2900, L100.0200 #### [facility] [address] [place], [address] Nucleated RBC (Bld) [#/Vol] 0 10*3/uL Normal 0-5 [facility] Comment on above: Performed By: #### L 500.2900, L100.0200 #### [facility] [address] [place], [address] Platelet mean volume (Bld) [Entitic vol] 10.3 fL Normal 6.2-12.0 [facility] Comment on above: Performed By: #### L 500.2900, L100.0200 #### [facility] [address] [place], [address] Platelets (Bld) [#/Vol] 245 10*3/uL Normal 150-450 [facility] Comment on above: Performed By: #### L 500.2900, L100.0200 #### [facility] [address] [place], [address] RBC (Bld) [#/Vol] 4.58 10*6/uL Normal 4.2-5.4 [facility] Comment on above: Performed By: #### L 500.2900, L100.0200 #### [facility] [address] [place], [address] RDW SD 39.2 fl Normal 35.1-43.9 [facility] Comment on above: Performed By: #### L 500.2900, L100.0200 #### [facility] [address] [place], [address] WBC (Bld) [#/Vol] 6.2 10*3/uL Normal 4.4-11.0 [facility] Comment on above: Performed By: #### L 500.2900, L100.0200 #### [facility] [address] [place], [address] Calculated very low density lipoprotein (VLDL) cholesterol measurementOrdered By: HEALTH ASSESSMENT on 11-19-2024 Calculated very low density lipoprotein (VLDL) cholesterol measurement 30 mg/dL 5-40 [facility] Carbon dioxide, total [Moles /volume] in Central venous bloodOrdered By: HEALTH ASSESSMENT on 11-19-2024 CO2 [Moles/Vol] 24.8 mmol/L 21.0-32.0 [facility] Chloride assayOrdered By: HE ALTH ASSESSMENT on 11-19-2024 Chloride [Moles/Vol] 107 mmol/L 98-108 [facility] Employee Profileon Cholesterol in LDL [Mass/Vol] 102 mg/dL Normal 0-130 [facility] Comment on above: Performed By: #### L 500.2900, L100.0200 #### [facility] [address] [place], [address] Erythrocyte distribution wid th ratioOrdered By: HEALTH ASSESSMENT on 11-19-2024 Erythrocyte distribution width (RBC) [Ratio] 12.9 % 11.6-14.6 [facility] Erythrocyte distribution wid th standard deviationOrdered By: HEALTH ASSESSMENT on 11-19-2024 Erythrocyte distribution width (RBC) [Ratio] 39.2 fl 35.1-43.9 [facility] Glomerular filtration rate ( GFR) estimation/1.73 sq m using serum, plasma, or whole bOrdered By: HEALTH ASSESSMENT on 11-19-2024 GFR/1.73 sq M.predicted among non-blacks MDRD (S/P/Bld) [Vol rate/Area] 64 mL/min/{1.73_m2} >60 [facility] Comment on above: mL/min/1.73m2 CKD-EP I Creatinine Equation (2020) Hematocrit Auto (Bld) [Volum e fraction]Ordered By: HEALTH ASSESSMENT on 11-19-2024 Hematocrit (Bld) [Volume fraction] 38.6 % 37-47 [facility] Hemoglobin measurementOrdere d By: HEALTH ASSESSMENT on 11-19-2024 Hemoglobin (Bld) [Mass/Vol] 13.5 g/dL 12.0-15.0 [facility] - Chemistry and C hemistry - challengeOrdered By: HEALTH ASSESSMENT on 11-19-2024 AST [Catalytic activity/Vol] 23 U/L <32 [facility] Lactate dehydrogenase (LDH) measurementOrdered By: HEALTH ASSESSMENT on 11-19-2024 LDH [Catalytic activity/Vol] 200 U/L 84-246 [facility] MCV (mean corpuscular volume ) determinationOrdered By: HEALTH ASSESSMENT on 11-19-2024 MCV (RBC) [Entitic vol] 84.3 fL 81-99 [facility] Mean corpuscular hemoglobin (MCH) determinationOrdered By: HEALTH ASSESSMENT on 11-19-2024 MCH (RBC) [Entitic mass] 29.5 pg 27.0-32.0 [facility] Mean corpuscular hemoglobin concentration (MCHC) determinationOrdered By: HEALTH ASSESSMENT on 11-19-2024 MCHC (RBC) [Mass/Vol] 35.0 g/dL 32-36 [facility] Mean platelet volume determi nationOrdered By: HEALTH ASSESSMENT on 11-19-2024 Platelet mean volume (Bld) [Entitic vol] 10.3 fL 6.2-12.0 [facility] Neutrophil percentageOrdered By: HEALTH ASSESSMENT on 11-19-2024 Neutrophils/100 WBC (Bld) 62.0 % 47-70 [facility] Nucleated red blood cell per centageOrdered By: HEALTH ASSESSMENT on 11-19-2024 Nucleated RBC/100 WBC (Bld) [Ratio] 0 % 0-5 [facility] Platelet countOrdered By: HE ALTH ASSESSMENT on 11-19-2024 Platelets (Bld) [#/Vol] 245 10*3/uL 150-450 [facility] Potassium measurement (mass/ volume)Ordered By: HEALTH ASSESSMENT on 11-19-2024 Potassium (Unsp spec) [Mass/Vol] 4.2 mmol/L 3.3-5.1 [facility] RBC Auto (Bld) [#/Vol]Ordere d By: HEALTH ASSESSMENT on 11-19-2024 RBC (Bld) [#/Vol] 4.58 10*6/uL 4.2-5.4 [facility] Screening total cholesterol/ high density lipoprotein (HDL) cholesterol ratioOrdered By: HEALTH ASSESSMENT on 11-19-2024 Cholesterol.total/Mariam sterol in HDL [Mass ratio] 4.03 {ratio} [facility] Serum creatinine measurement (mass/volume)Ordered By: HEALTH ASSESSMENT on 11-19-2024 Creatinine [Mass/Vol] 0.98 mg/dL 0.70-1.20 [facility] Serum globulin measurementOr dered By: HEALTH ASSESSMENT on 11-19-2024 Globulin (S) [Mass/Vol] 2.5 g/dL 2.2-4.2 [facility] Serum glucose measurement (m ass/volume)Ordered By: HEALTH ASSESSMENT on 11-19-2024 Glucose [Mass/Vol] 109 mg/dL High 70-99 [facility] Serum or plasma alanine avila otransferase (ALT) measurementOrdered By: HEALTH ASSESSMENT on 11-19-2024 ALT [Catalytic activity/Vol] 25 U/L <35 [facility] Serum or plasma albumin fawad urement (mass/volume)Ordered By: HEALTH ASSESSMENT on 11-19-2024 Albumin [Mass/Vol] 4.2 g/dL 3.4-4.8 [facility] Serum or plasma albumin/glob ulin mass ratioOrdered By: HEALTH ASSESSMENT on 11-19-2024 Albumin/Globulin [Mass ratio] 1.7 {ratio} 0.9-2.4 [facility] Serum or plasma alkaline khai sphatase measurementOrdered By: HEALTH ASSESSMENT on 11-19-2024 ALP [Catalytic activity/Vol] 116 U/L High 35-104 [facility] Serum or plasma calcium fawad urement (mass/volume)Ordered By: HEALTH ASSESSMENT on 11-19-2024 Calcium [Mass/Vol] 8.7 mg/dL 7.6-11.0 [facility] Serum or plasma cholesterol in HDL measurement (mass/volume)Ordered By: HEALTH ASSESSMENT on 11-19-2024 Cholesterol in HDL [Mass/Vol] 43 mg/dL >40 [facility] Comment on above: National Cholesterol Education Program (NCEP) guidelines:<40 mg/dL: Low HDL-cholesterol (major risk factor for CHD)>= 60 mg/dL: High HDL-cholesterol (negative risk factor for CHD)HDL-cholesterol is affected by a number of factors, e.g. smoking, exercise, hormones, sex and age. Serum or plasma cholesterol in LDL measurement (mass/volume)Ordered By: HEALTH ASSESSMENT on 11-19-2024 Cholesterol in LDL [Mass/Vol] 102 mg/dL 0-130 [facility] Serum or plasma cholesterol measurement (mass/volume)Ordered By: HEALTH ASSESSMENT on 11-19-2024 Cholesterol [Mass/Vol] 175 mg/dL <201 [facility] Comment on above: Cholesterol level, D esirable <200 mg/dLBorderline high cholesterol 200-239 mg/dLHigh cholesterol >=240 mg/dLRecommendations of the NCEP Adult Treatment Panel for the following risk-cutoff thresholds for the [place] population. Serum or plasma urea nitroge n measurement (mass/volume)Ordered By: HEALTH ASSESSMENT on 11-19-2024 Urea nitrogen [Mass/Vol] 16 mg/dL 4-19 [facility] Serum or plasma uric acid me asurement (mass/volume)Ordered By: [facility] ASSESSMENT on 11-19-2024 Urate [Mass/Vol] 7.1 mg/dL High 2.6-6.0 [facility] Comment on above: The drugs N-Acetylcy steine and Metamizole may falsely depress this assay. Sodium levelOrdered By: [facility] ASSESSMENT on 11-19-2024 Sodium [Moles/Vol] 141 mmol/L 133-145 [facility] Total proteinOrdered By: [facility] ASSESSMENT on 11-19-2024 Protein [Mass/Vol] 6.7 g/dL 5.9-8.4 [facility] Triglycerides measurementOrd ered By: HEALTH ASSESSMENT on 11-19-2024 Triglyceride [Mass/Vol] 148 mg/dL <199 [facility] Comment on above: The drugs N-Acetylcy steine and Metamizole may falsely depress this assay. Normal range: <150 mg/dLBorderline High: 150-199 mg/dLHigh: 200-499 mg/dLVery High: >500 mg/dL White blood cell (WBC) count Ordered By: HEALTH ASSESSMENT on 11-19-2024 WBC (Bld) [#/Vol] 6.2 10*3/uL 4.4-11.0 [facility] Breast imaging reportOrdered By: Chantell Maciel on 09-05-2024 Study report [facility] Imaging Services [address] [place], [place] [id number] SCRN MAMM (CAD)W/CARLOS BILAT MR#: [id number] Acct: [id number] Name: AARON REYNOLDS Rep #: [id number] : 1960 F 63 From: Mabel Maciel MD PCP: Dr. Brandon Matson MD Status: R EG CLI Study:SCRN MAMM (CAD)W/CARLOS BILAT Date of Exa m: 09/05/24 Exam# [id number] Ordering Dr: Susan Urbina NP SURGICAL GARMENT FITTER-C EXAM: SCRN MAMM (CAD)W/CARLOS BILAT 09/05/2024 CLINICAL HISTORY: F, Age 63 y/o , SCREENING FOR BREAST CANCER TECHNIQUE: Bilateral screening digital breast tomosynthesis with 2D and 3D images. Computeraided detection. COMPARISON: Prior exam(s) dated 09/05/2023, 04/07/2022. FINDINGS: TISSUE DENSITY: The breast tissue is composed of scattered area of fibroglandular density. Bilateral Breast Mammographic Findings: No significant masses, calcifications or other abnormalities are identified. BI/SCRN MAMM (CAD)W/CARLOS BILAT IMPRESSION: Right Breast: BIRADS 1 NEGATIVE. Left Breast: BIRADS 1 NEGATIVE. OVERALL FINAL ASSESSMENT: BIRADS 1 NEGATIVE. RECOMMENDATION: Routine annual follow-up in 1 Year A letter with findings and recommendations will be mailed to the patient. Reading Location: [facility] CC: SURGICAL GARMENT FITTER-C Susan Urbina; Dr. Brandon Matson MD ~ Cannery Worker: Signed [facility] SCRN MAMM (CAD)W/CARLOS BILATo n 09-05-2024 SCRN MAMM (CAD)W/CARLOS BILAT [facility] Imaging Services [address] [place] [id number] SCRN MAMM (CAD)W/CARLOS BILAT MR#: [id number] Acct: [id number] Name: AARON REYNOLDS Rep #: [id number] : 1960 F 63 From: Chantell Maciel MD PCP: Dr. Brandon Matson MD Status: REG CLI Study: SCRN MAMM (CAD)W/CARLOS BILAT Date of Exam: 07/31 Exam# [id number] Ordering Dr: Susan Urbina NP SURGICAL GARMENT FITTER -C EXAM: SCRN MAMM (CAD)W/CARLOS BILAT 09/05/2024 CLINICAL HISTORY: F, Age 63 y/o , SCREENING FOR BREAST CANCER TECHNIQUE: Bilateral screening digital breast tomosynthesis with 2D and 3D images. Computer aided detection. COMPARISON: Prior exam(s) dated 09/05/2023, 04/07/2022. FINDINGS: TISSUE DENSITY: The breast tissue is composed of scattered area of fibroglandular density. Bilateral Breast Mammographic Findings: No significant masses, calcifications or other abnormalities are identified. BI/SCRN MAMM (CAD)W/CARLOS BILAT IMPRESSION: Right Breast: BIRADS 1 NEGATIVE. Left Breast: BIRADS 1 NEGATIVE. OVERALL FINAL ASSESSMENT: BIRADS 1 NEGATIVE. RECOMMENDATION: Routine annual follow-up in 1 Year A letter with findings and recommendations will be mailed to the patient. Reading Location: [facility] CC: SURGICAL GARMENT FITTER-C Susan Urbina; Dr. Brandon Matson MD Cannery Worker: Signed Normal [facility] Basic Metabolic Profile (BMP )on 07-02-2024 BUN/CRE 14.4 RATIO Normal 10-20 [facility] Comment on above: Performed By: #### L 501.1400, L500.2500 #### [facility] [address] [place], [address] CA,Total 9.2 mg/dL Normal 8.5-10.1 [facility] Comment on above: Performed By: #### L 501.1400, L500.2500 #### [facility] [address] [place], [address] Chloride [Moles/Vol] 109 mmol/L High 98-107 [facility] Comment on above: Performed By: #### L 501.1400, L500.2500 #### [facility] [address] [place], [address] CO2 [Moles/Vol] 26.0 mmol/L Normal 21.0-32.0 [facility] Comment on above: Performed By: #### L 501.1400, L500.2500 #### [facility] [address] [place], [address] Creatinine [Mass/Vol] 0.97 mg/dL Normal 0.55-1.02 [facility] Comment on above: Result Comment: The validity of the calculated GFR GFRAA in patients over 70 years has not been determined. Clinical correlation is essential. Performed By: #### L 501.1400, L500.2500 #### [facility] [address] [place], [address] EST GFR - AA 74 mL/min Normal >60 [facility] Comment on above: Result Comment: Afri can Taiwanese GFR Calc Performed By: #### L 501.1400, L500.2500 #### [facility] [address] [place], [address] GAP 7 Normal 5-15 [facility] Comment on above: Performed By: #### L 501.1400, L500.2500 #### [facility] [address] [place], [address] GFR/1.73 sq M.predicted among non-blacks MDRD (S/P/Bld) [Vol rate/Area] 61 mL/min/{1.73_m2} Normal >60 [facility] Comment on above: Result Comment: Non- GFR Calc Performed By: #### L 501.1400, L500.2500 #### [facility] [address] [place], [address] Glucose [Mass/Vol] 102 mg/dL Normal 74-106 [facility] Comment on above: Result Comment: Fast ing Glucose result from 100 to 125 mg/dL suggests IMPAIRED HOMEOSTASIS per A.D.A. criteria. Performed By: #### L 501.1400, L500.2500 #### [facility] [address] [place], [address] Potassium [Moles/Vol] 4.7 mmol/L Normal 3.5-5.1 [facility] Comment on above: Performed By: #### L 501.1400, L500.2500 #### [facility] [address] [place], [address] Sodium [Moles/Vol] 141 mmol/L Normal 136-145 [facility] Comment on above: Performed By: #### L 501.1400, L500.2500 #### [facility] [address] [place], [address] Urea nitrogen [Mass/Vol] 14 mg/dL Normal 7-18 [facility] Comment on above: Performed By: #### L 501.1400, L500.2500 #### [facility] [address] [place], [address] Blood urea nitrogen (BUN)/cr eatinine ratioOrdered By: Brandon Matson on 07-02-2024 Urea nitrogen/Creatinine [Mass ratio] 14.4 mg/mg 10-20 [facility] Carbon dioxide measurementOr dered By: Brandon Matson on 07-02-2024 CO2 [Moles/Vol] 26.0 mmol/L 21.0-32.0 [facility] Chloride measurementOrdered By: Brandon Matson on 07-02-2024 Chloride [Moles/Vol] 109 mmol/L High 98-107 [facility] Estimated glomerular filtrat ion rate (GFR) AmericanOrdered By: Brandon Matson on 07-02-2024 Estimated GFR (MDRD) Amer 74 mL/min >60 [facility] Comment on above: GFR Calc Glomerular filtration rate ( GFR) estimationOrdered By: Brandon Matson on 07-02-2024 Estimated GFR (MDRD) Non-Af Amer 61 mL/min >60 [facility] Comment on above: Non- GFR Calc Glucose measurementOrdered B y: Minichula Dano on 07-02-2024 Glucose [Mass/Vol] 102 mg/dL 74-106 [facility] Comment on above: Fasting Glucose resu lt from 100 to 125 mg/dL suggests IMPAIRED HOMEOSTASIS per A.D.A. criteria. Internal Medicine Office Vis iton 07-02-2024 Internal Medicine Office Visit [facility] [address] [place] [address] [place] [address] OFFICE VISIT Date of Service: 07/02/24 MR#: [id number] Acct: [id number] Name: AARON REYNOLDS Rep #: [id number] : 1960 Provider: Dr. Brandon castorena MD Age/Sex: 63/F Location: [facility] Status: Signed Intake Vital Signs 04/02/24 14:39 07/02/24 08:23 Height 5 ft 3 in 5 ft 3 in Weight: 175 lb BMI 30.9 BP 124/62 H Blood Pressure Location Lt brachial Position Sitting Respiration 16 Pulse 62 Pulse Source Monitor Temp 97.2 F L Temp Source Temporal Intake Visit Reasons: 3 M FU Chief Complaint: Follow-up chronic conditions Engine Oiler Required: No Accompanied by: Self Is patient in pain?: No Allergies Penicillins (PCN) Allergy (Intermediate, Verified 07/02/24 08:19) Hives Sulfa (Sulfonamide Antibiotics) Allergy (Mild, Verified 07/02/24 08:19) Hives amantadine (From Symmetrel) Adverse Reaction (Severe, Verified 07/02/24 08:19) Hallucinations Medications ???Medication ???Instructions ???Recorded ???Confirmed ???Type allopurinol 200 mg tablet 200 mg PO DAILY #90 tabs 04/27/23 07/02/24 Rx pantoprazole 40 mg tablet,delayed 40 mg PO DAILY #90 tabs 11/04/23 07/02/24 Rx release magnesium sulfate 100 mg capsule 100 mg PO DAILY 12/05/23 07/02/24 History amlodipine 5 mg tablet 5 mg PO QDAY #30 tabs 05/25/24 07/02/24 Rx olmesartan 20 mg tablet 20 mg PO BID #180 tabs 05/25/24 07/02/24 Rx sumatriptan succinate 100 mg tablet 100 mg PO ONCE PRN migraine 06/07/24 07/02/24 Rx headache #9 tabs propranolol 60 mg capsule,24 60 mg PO BID #60 caps 07/02/24 07/02/24 Rx hr,extended release Have you fallen in the past year?: No [facility] History Abnormal EKG Dyspnea [place] disease Pain of left upper extremity Strain of left elbow Left shoulder strain Gout Obesity (BMI 30-39.9) Hyperuricemia without signs inflammatory arthritis/tophaceous disease Blood glucose elevated CKD (chronic kidney disease), stage III LUQ pain Trigger finger Migraines Vision problems Liver disease Gallstones Family history of coronary arteriosclerosis GERD (gastroesophageal reflux disease) Hypertension Surgical History History of umbilical hernia repair H/O dilation and curettage History of tonsillectomy Hx of cholecystectomy History of left heart catheterization ( 02/18/17) Family History Father CAD (coronary artery disease) Heart disease Myocardial infarction CVA (cerebral vascular accident) Post heart bypass Arthritis Mother CAD (coronary artery disease) Heart disease Myocardial infarction, Onset Age: 68 Diabetes Cancer Melanoma Hypertension Melanoma Brother Cancer Prostate Hypertension Social History household members: spouse current occupational status: employed current occupation: PRN @ [employer] Smoking Status: Never smoker alcohol intake: current alcohol intake frequency: holidays/special occasions only Alcohol type: beer substance use type: does not use what type of physical activity do you participate in: walking and other details: HIT frequency: 3-4 times per week seatbelt use: always do you feel safe at home: Yes additional social 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 No acute concerns at this time. Recent changes to her blood pressure medications, she states that her readings have been a lot better. No concerning side effects. Blood pressure today is at 124/62 mmHg. Also history of gout, no recent acute gout episodes. Currently on allopurinol. History of migraines, in a couple weeks, has had no migraine episodes either. Currently on propranolol for prophylaxis and Imitrex as needed. Also takes magnesium daily. Feels well. ROS Const Constitutional: No body ache, chills, excessive sweating, fatigue, fever(s), frequent falls, headache(s), snoring, weakness, weight change or change in appetite Eyes Eyes: No blurry vision, change in vision, discharge, floaters, visual disturbances, eye pain or Light sensitivity ENT ENT: No abnormal hearing, ear or mastoid pain, tinnitus, balance problems, nosebleed/epistaxis, nasal congestion, headache(s), neck pain or sore throat Resp Respiratory: No cough, excessive phlegm production, pain on inspiration, shortness of breath, snoring or wheezing Cardio Cardiology: No chest pain at rest, chest pain with exertion, excessi (more content not included)... Normal [facility] Potassium measurementOrdered By: Brandon Matson on 07-02-2024 Potassium [Moles/Vol] 4.7 mmol/L 3.5-5.1 [facility] Serum anion gap measurementO rdered By: Brandon Matson on 07-02-2024 Anion gap [Moles/Vol] 7 mmol/L 5-15 [facility] Serum or plasma calcium fawad urement (mass/volume)Ordered By: Brandon Matson on 07-02-2024 Calcium [Mass/Vol] 9.2 mg/dL 8.5-10.1 [facility] Serum or plasma creatinine m easurement (mass/volume)Ordered By: Brandon Matson on 07-02-2024 Creatinine [Mass/Vol] 0.97 mg/dL 0.55-1.02 [facility] Comment on above: The validity of the calculated GFR & GFRAA in patients over 70 years has not been determined. Clinical correlation is essential. Serum or plasma urea nitroge n measurement (mass/volume)Ordered By: Brandon Matson on 07-02-2024 Urea nitrogen [Mass/Vol] 14 mg/dL 7-18 [facility] Serum or plasma uric acid me asurement (mass/volume)Ordered By: Brandon Matson on 07-02-2024 Urate [Mass/Vol] 5.9 mg/dL 2.6-6.0 [facility] Comment on above: The drugs N-Acetylcy steine and Metamizole may falsely depress this assay. Sodium levelOrdered By: Mini zendejasaba Dano on 07-02-2024 Sodium [Moles/Vol] 141 mmol/L 136-145 [facility] Uric Acidon 07-02-2024 URIC 5.9 mg/dL Normal 2.6-6.0 [facility] Comment on above: Result Comment: The drugs N-Acetylcysteine and Metamizole may falsely depress this assay. Performed By: #### L 501.1400, L500.2500 #### [facility] [address] [place], [address] Stress Test Echo W/Contrasto n 04-11-2024 Stress Test Echo W/Contrast [facility] [address] [place] [address] Stress Test Echo W/Contrast MR#: [id number] Acct: [id number] Name: AARON REYNOLDS Rep #: [id number] : 1960 63 From: Brenda Soto MD Primary Care: Dr. Brandon Matson MD Status: REG CLI Ordering Dr: Brandon Matson MD Sex: F C Reason For Study: DYSPNEA/SOB Stress Results Protocol: Lc Protocol WITH DEFINITY Maximum Predicted HR: 155 bpm Target HR: 132 bpm % Maximum Predicted HR: 70 % Heart Stage Duration Rate BP Comment (mm:ss) (bpm) BASELINE 46 120/862 CC DEFINITY TOTAL GIVEN STAGE 1 3:00 76 128/62 STATES GETTING A LITTLE HARDER TO BREATHE, AND SOME SLIGHT STAGE 2 3:00 91 142/70DISCOMFORT INBETWEEN HER SHOULDER BLADES STAGE 3 3:00 108 142/78STATES FEELING A LITTLE BETTER RECOVERY 69 128/82 Stress Duration: 9:00 mm:ss Maximum Stress HR: 108 bpm Baseline Echocardiogram Findings The left ventricular ejection fraction is 65 %. Stress Echo Wall motion Data Resting WM Intermediate WM Stress WM Resting Wall Motion Wall Motion Stress No regional wall motion All segments Hyperkinetic. abnormalities noted. EKG Data Sinus rhythm with nonspecific ST changes. Horizontal ST depressions in inferior leads however nondiagnostic secondary to baseline abnormality. ECHO/Stress Test Echo W/Contrast Interpretation Summary Good functional capacity. 74% of maximal predicted heart rate obtained. Nondiagnostic stress ECG secondary to baseline abnormality. All wall segments augment post exercise with no echo evidence of ischemia. Ordering Physician: Brandon Matson Referring Physician: Brandon Matson Performed By: Aixa Reese RDCS, RVT 04/11/24 1358 Date Brenda Soto MD CC: Dr. Brandon Matson MD Date Dictated: 04/11/24 1046 Date Transcribed: 04/11/24 1358 Cannery Worker: Signed Normal [facility] Internal Medicine [facility] 04-02-2024 Internal Medicine Office Visit [facility] [place] [address] OFFICE VISIT Date of Service: 04/02/24 MR#: [id number] Acct: [id number] Name: AARON REYNOLDS Rep #: [id number] : 1960 Provider: Dr. Brandon castorena MD Age/Sex: 63/F Location: [facility] [facility] Status: Signed Intake Vital Signs 11/04/23 13:14 01/19/24 14:27 04/02/24 14:39 Height 5 ft 3 in 5 ft 3 in 5 ft 3 in Weight: 182 lb BMI 32.2 BP 142/82 H Blood Pressure Location Lt brachial Position Sitting Respiration 16 Pulse 54 L Pulse Source Monitor Temp 97.1 F L Temp Source Temporal Pulse Oximetry (%) 97 Oxygen Delivery Method room air Intake Visit Reasons: 4 M FU Chief Complaint: Follow-up chronic conditions Engine Oiler Required: No Is patient in pain?: No Allergies Penicillins (PCN) Allergy (Intermediate, Verified 04/02/24 14:34) Hives Sulfa (Sulfonamide Antibiotics) Allergy (Mild, Verified 04/02/24 14:34) Hives amantadine (From Symmetrel) Adverse Reaction (Severe, Verified 04/02/24 14:34) Hallucinations Medications ???Medication ???Instructions ???Recorded ???Confirmed ???Type allopurinol 200 mg tablet 200 mg PO DAILY #90 tabs 04/27/23 04/02/24 Rx pantoprazole 40 mg tablet,delayed 40 mg PO DAILY #90 tabs 11/04/23 04/02/24 Rx release magnesium sulfate 100 mg capsule 100 mg PO DAILY 12/05/23 04/02/24 History olmesartan 20 mg tablet 20 mg PO BID #180 tabs 03/15/24 04/02/24 Rx propranolol 80 mg capsule,24 80 mg PO BID 3 months #180 caps 03/15/24 04/02/24 Rx hr,extended release sumatriptan succinate 100 mg tablet 100 mg PO ONCE PRN migraine 03/15/24 04/02/24 Rx headache #9 tabs amlodipine 5 mg tablet 5 mg PO QDAY #30 tabs 04/02/24 04/02/24 Rx Have you fallen in the past year?: Yes (04/2023) Nurse's Note: States she got covid and flu this month will get dates to us later. [facility] Medical History [place] disease Pain of left upper extremity Strain of left elbow Left shoulder strain Gout Obesity (BMI 30-39.9) Hyperuricemia without signs inflammatory arthritis/tophaceous disease Blood glucose elevated CKD (chronic kidney disease), stage III LUQ pain Trigger finger Migraines Vision problems Liver disease Gallstones Family history of coronary arteriosclerosis GERD (gastroesophageal reflux disease) Hypertension Surgical History History of umbilical hernia repair H/O dilation and curettage History of tonsillectomy Hx of cholecystectomy History of left heart catheterization ( 02/18/17) Family History Father CAD (coronary artery disease) Heart disease Myocardial infarction CVA (cerebral vascular accident) Post heart bypass Arthritis Mother CAD (coronary artery disease) Heart disease Myocardial infarction, Onset Age: 68 Diabetes Cancer Melanoma Hypertension Melanoma Brother Cancer Prostate Hypertension Social History household members: spouse current occupational status: employed current occupation: PRN @ [employer] Smoking Status: Never smoker alcohol intake: current alcohol intake frequency: holidays/special occasions only Alcohol type: beer substance use type: does not use what type of physical activity do you participate in: walking and other details: HIT frequency: 3-4 times per week seatbelt use: always do you feel safe at home: Yes additional social 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 Also has some concerns. She reports shortness of breath typically with activity. Has tried to exercise more lately but notes that she is short of breath with going up inclines and stairs. Improves at rest. No chest pain. Blood pressure today at 142/82 mmHg. Has had even higher readings at home. Currently on olmesartan and propranolol which she is taking as prescribed. Had been on hydrochlorothiazide however this was discontinued due to hyperuricemia which improved afterwards. Other chronic conditions are stable. ROS Const Constitutional: No body ache, chills, excessive sweating, fatigue, fever(s), frequent falls, headache(s), snoring, weakness, sleep problems or change in appetite Eyes Eyes: No blurry vision, change in vision, bulging eyes, floaters, visual disturbances, eye pain or Light sensitivity ENT ENT: No abnormal hearing, ear or mastoid pain, tinnitus, balance problems, nosebleed/epistaxis, na (more content not included)... Normal [facility] Dexa Bone Density Studyon Dexa Bone Density Study [facility] Imaging Services [address] [place] [address] Dexa Bone Density Study MR#: [id number] Acct: [id number] Name: AARON REYNOLDS Rep #: [id number] : 1960 F 63 From: Gael ball MD PCP: Dr. Brandon Matson MD Status: [facility] Study: Dexa Bone Density Study Date of Exam: 02/02/24 Exam# [id number] Ordering Dr: Susan Urbina SURGICAL GARMENT FITTER SURGICAL GARMENT FITTER -[id number] STUDY: DUAL ENERGY X-RAY ABSORPTIOMETRY / DXA REASON FOR EXAM: Female, 63 years old. Screening for osteoporosis TECHNIQUE: Bone Mineral Density (BMD) measurements of lumbar spine and bilateral hips were obtained. COMPARISON: None. FINDINGS: Lumbar Spine (L1-L4): g/cm2 (0.936) / T-score (-1.0) / Z-score (0.8) Findings are suggestive of osteopenia with a low fracture risk. Left Femur Total: g/cm2 (0.894) / T-score (-0.4) / Z-score (0.8) Left Femoral Neck: g/cm2 (0.720) / T-score (-1.2) / Z-score (0.4) Right Femur Total: g/cm2 (0.856) / T-score (-0.7) / Z-score (0.5) Right Femoral Neck: g/cm2 (0.706) / T-score (-1.3) / Z-score (0.2) BD/Dexa Bone Density Study IMPRESSION: The patient is considered osteopenic as outlined below according to World Franck Organization (WHO) criteria with a low fracture risk. Reference Information: The T-score is the number of standard deviations above or below the standard which is normal for young adults at their peak bone mineral density. The World Health Organization (WHO) interprets the T-scores as follows: Above -1 Normal bone density Between -1 and -2.5 Osteopenia Equal to / or below -2.5 Osteoporosis As a practical clinical guideline, osteopenia may be graded as follows: Mild -1 through -1.5 Moderate -1.6 through -2.0 Severe -2.1 through -2.4 The Z-score is the number of standard deviations above or below age-matched controls. A Z-score of less than -1.5 would be considered abnormal. References: 1. NIH Osteoporosis and Related Bone Diseases www osteo.org 2. International Society for Clinical Densitometry www iscd.org 3. National Osteoporosis Foundation www nof.org Electronically Signed: Gael Miller MD at 9:36 EDT Reading Location ID and State: [facility] / [place] , Service support , CC: SELVIN Urbina; Dr. Brandon Matson MD Cannery Worker: Signed Normal [facility] Urgent Care Visit Reporton 0 01-19-2024 Urgent Care Visit Report [facility] [address] [place], [place] [address] OFFICE VISIT Date of Service: 01/19/24 MR#: [id number] Acct: [id number] Name: AARON REYNOLDS Rep #: [id number] : 1960 Provider: ATIF Allison Age/Sex: 63/F Location: [facility] [place] Status: Signed Intake Vital Signs 12/05/23 14:45 01/19/24 14:27 Height 5 ft 3 in 5 ft 3 in Weight: 180 lb BMI 31.8 BP 152/96 H Blood Pressure Location Lt brachial Position Sitting Respiration 16 Pulse 57 L Pulse Source Monitor Temp 98.3 F Temp Source Temporal Pulse Oximetry (%) 97 Oxygen Delivery Method room air Intake Visit Reasons: CLOGGED EARS Chief Complaint: CLOGGED EARS Engine Oiler Required: No Accompanied by: Self Is patient in pain?: No Allergies Penicillins (PCN) Allergy (Intermediate, Verified 01/19/24 14:29) Hives Sulfa (Sulfonamide Antibiotics) Allergy (Mild, Verified 01/19/24 14:29) Hives amantadine (From Symmetrel) Adverse Reaction (Severe, Verified 01/19/24 14:29) Hallucinations Medications ???Medication ???Instructions ???Recorded ???Confirmed ???Type allopurinol 200 mg tablet 200 mg PO DAILY #90 tabs 04/27/23 01/19/24 Rx olmesartan 20 mg tablet 20 mg PO BID #180 tabs 11/04/23 01/19/24 Rx pantoprazole 40 mg tablet,delayed 40 mg PO DAILY #90 tabs 11/04/23 01/19/24 Rx release propranolol 80 mg capsule,24 80 mg PO BID 3 months #180 caps 11/04/23 01/19/24 Rx hr,extended release sumatriptan succinate 100 mg tablet 100 mg PO ONCE PRN migraine 11/04/23 01/19/24 Rx headache #9 tabs magnesium sulfate 100 mg capsule 100 mg PO DAILY 12/05/23 01/19/24 History Have you fallen in the past year?: No Nurse's Note: Pt states she has been swimming and now has clogged ears. Pt did use ear drops and cleared up but now is having issues. [facility] Medical History [place] disease Pain of left upper extremity Strain of left elbow Left shoulder strain Gout Obesity (BMI 30-39.9) Hyperuricemia without signs inflammatory arthritis/tophaceous disease Blood glucose elevated CKD (chronic kidney disease), stage III LUQ pain Trigger finger Migraines Vision problems Liver disease Gallstones Family history of coronary arteriosclerosis GERD (gastroesophageal reflux disease) Hypertension Surgical History History of umbilical hernia repair H/O dilation and curettage History of tonsillectomy Hx of cholecystectomy History of left heart catheterization ( 02/18/17) Family History Father CAD (coronary artery disease) Heart disease Myocardial infarction CVA (cerebral vascular accident) Post heart bypass Arthritis Mother CAD (coronary artery disease) Heart disease Myocardial infarction, Onset Age: 68 Diabetes Cancer Melanoma Hypertension Melanoma Brother Cancer Prostate Hypertension Social History household members: spouse current occupational status: employed current occupation: PRN @ [employer] Smoking Status: Never smoker alcohol intake: current alcohol intake frequency: holidays/special occasions only Alcohol type: beer substance use type: does not use what type of physical activity do you participate in: walking and other details: HIT frequency: 3-4 times per week seatbelt use: always do you feel safe at home: Yes 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 Patient states that she went swimming last weekend and has had clogged ears since then. She denies otorrhea however has had some hearing loss. No fever, chills, sweats. No other associated symptoms or alleviating/aggravatin g factors. ROS Const Constitutional: No other (As above) Exam Const General: cooperative and healthy appearing [facility] Head: normocephalic and atraumatic Ears: hearing grossly normal bilaterally and EAC abnormal cerumen impaction (Cleared with irrigation and curettage.) bilaterally Nose: external nose normal Face and sinus: normal facial exam and face symmetric Mouth: oral mucosae normal Throat: posterior oropharynx normal Skin General: no rashes or lesions noted Neuro General: patient alert Psych Appearance: grossly normal Mental Status: mental status grossly normal Coding Level of Care Code Off vis,est,level 3 Diagnoses Bilateral hearing loss due to cerumen impaction H61.23 Assessment and Plan Assessment and Plan (1) Bilateral he (more content not included)... Normal [facility] Basophil percentageOrdered B y: Brandon Matson on 04-27-2023 Chloride [Moles/Vol] 106 mmol/L 98-107 [facility] Glucose [Mass/Vol] 100 mg/dL 74-106 [facility] Comment on above: Fasting Glucose resu lt from 100 to 125 mg/dL suggests IMPAIRED HOMEOSTASIS per A.D.A. criteria. Potassium [Moles/Vol] 3.8 mmol/L 3.5-5.1 [facility] Sodium [Moles/Vol] 141 mmol/L 136-145 [facility] - Chemistry and C hemistry - challengeOrdered By: Brandon Matson on 04-27-2023 CO2 [Moles/Vol] 32.0 mmol/L 21.0-32.0 [facility] Urea nitrogen/Creatinine [Mass ratio] 16.8 mg/mg 10-20 [facility] No Panel InformationOrdered By: Brandon Matson on 04-27-2023 Urine Microalbumin/Creatinine Ratio 30.7 mg/g CRE <30 [facility] Estimated GFR (MDRD) Amer 62 mL/min >60 [facility] Comment on above: GFR Calc Estimated GFR (MDRD) Non-Af Amer 51 mL/min >60 [facility] Comment on above: Non- GFR Calc Serum or plasma calcium fawad urement (mass/volume)Ordered By: Brandon Matson on 04-27-2023 Calcium [Mass/Vol] 9.0 mg/dL 8.5-10.1 [facility] Serum or plasma creatinine m easurement (mass/volume)Ordered By: Brandon Matson on 04-27-2023 Creatinine [Mass/Vol] 1.13 mg/dL 0.55-1.02 [facility] Comment on above: The validity of the calculated GFR & GFRAA in patients over 70 years has not been determined. Clinical correlation is essential. Serum or plasma urea nitroge n measurement (mass/volume)Ordered By: Brandon Matson on 04-27-2023 Urea nitrogen [Mass/Vol] 19 mg/dL 7-18 [facility] Serum or plasma uric acid me asurement (mass/volume)Ordered By: Brandon Matson on 04-27-2023 Urate [Mass/Vol] 7.1 mg/dL 2.6-6.0 [facility] Comment on above: The drugs N-Acetylcy steine and Metamizole may falsely depress this assay. Thin prep Papanicolaou smear with manual screeningOrdered By: Brandon Matson on 04-27-2023 Thin prep Papanicolaou smear with manual screening 17.4 mg/L NO RANGE EST. [facility] Thin prep Papanicolaou smear with manual screening 3 5-15 [facility] Urine creatinine measurement (mass/volume)Ordered By: Brandon Matson on 04-27-2023 Creatinine (U) [Mass/Vol] 56.60 mg/dL NO RANGE EST. [facility] Basophil percentageOrdered B y: Brandon Matson on 01-05-2023 Chloride [Moles/Vol] 108 mmol/L 98-107 [facility] Glucose [Mass/Vol] 110 mg/dL 74-106 [facility] Comment on above: Fasting Glucose resu lt from 100 to 125 mg/dL suggests IMPAIRED HOMEOSTASIS per A.D.A. criteria. Potassium [Moles/Vol] 3.9 mmol/L 3.5-5.1 [facility] Sodium [Moles/Vol] 138 mmol/L 136-145 [facility] - Chemistry and C hemistry - challengeOrdered By: Brandon Matson on 01-05-2023 CO2 [Moles/Vol] 24.0 mmol/L 21.0-32.0 [facility] Urea nitrogen/Creatinine [Mass ratio] 14.0 mg/mg 10-20 [facility] No Panel InformationOrdered By: Brandon Matson on 01-05-2023 Estimated GFR (MDRD) Amer 62 mL/min >60 [facility] Comment on above: GFR Calc Estimated GFR (MDRD) Non-Af Amer 51 mL/min >60 [facility] Comment on above: Non- GFR Calc Serum or plasma calcium fawad urement (mass/volume)Ordered By: Brandon Matson on 01-05-2023 Calcium [Mass/Vol] 9.1 mg/dL 8.5-10.1 [facility] Serum or plasma creatinine m easurement (mass/volume)Ordered By: Brandon Matson on 01-05-2023 Creatinine [Mass/Vol] 1.14 mg/dL 0.55-1.02 [facility] Comment on above: The validity of the calculated GFR & GFRAA in patients over 70 years has not been determined. Clinical correlation is essential. Serum or plasma urea nitroge n measurement (mass/volume)Ordered By: Brandon Matson on 01-05-2023 Urea nitrogen [Mass/Vol] 16 mg/dL 7-18 [facility] Serum or plasma uric acid me asurement (mass/volume)Ordered By: promise Matson on 01-05-2023 Urate [Mass/Vol] 7.3 mg/dL 2.6-6.0 [facility] Comment on above: The drugs N-Acetylcy steine and Metamizole may falsely depress this assay. Thin prep Papanicolaou smear with manual screeningOrdered By: Brandon Matson on 01-05-2023 Thin prep Papanicolaou smear with manual screening 6 5-15 [facility] Absolute lymphocyte countOrd ered By: HEALTH ASSESSMENT on 10-01-2022 Lymphocytes Auto (Unsp spec) [#/Vol] 2.23 10*3/uL 0.83-4.51 [facility] Absolute reticulocyte countO rdered By: HEALTH ASSESSMENT on 10-01-2022 Reticulocytes (Bld) [#/Vol] 0.00 10*3/uL 0-5 [facility] Basophil percentageOrdered B y: HEALTH ASSESSMENT on 10-01-2022 Basophil percentage 3.3 mg/dL 2.5-4.9 [facility] Bilirubin [Mass/Vol] 1.40 mg/dL 0.20-1.00 [facility] Comment on above: For patients on eltr ombopag therapy, use of Dimension [place] TBIL is not recommended. Chloride [Moles/Vol] 105 mmol/L 98-107 [facility] Cholesterol [Mass/Vol] 202 mg/dL <200 [facility] Comment on above: <200 mg/dL Desirable 200-240 mg/dL Borderline >240 mg/dL High Risk Glucose [Mass/Vol] 114 mg/dL 74-106 [facility] Comment on above: Fasting Glucose resu lt from 100 to 125 mg/dL suggests IMPAIRED HOMEOSTASIS per A.D.A. criteria. LDH [Catalytic activity/Vol] 196 U/L 84-246 [facility] Neutrophils (Bld) [#/Vol] 5.0 10*3/uL 2.0-7.7 [facility] Potassium [Moles/Vol] 3.5 mmol/L 3.5-5.1 [facility] Protein [Mass/Vol] 7.5 g/dL 6.4-8.2 [facility] Sodium [Moles/Vol] 136 mmol/L 136-145 [facility] Triglyceride [Mass/Vol] 173 mg/dL <199 [facility] Comment on above: The drugs N-Acetylcy steine and Metamizole may falsely depress this assay.Serum Triglycerides Reference Interval Normal <150 mg/dL Borderline high 150 - 199 mg/dL High 200 - 499 mg/dL Very High > or = 500 mg/dL WBC (Bld) [#/Vol] 8.0 10*3/uL 4.4-11.0 [facility] Bilirubin Test strip Ql (U)O rdered By: HEALTH ASSESSMENT on 10-01-2022 Bilirubin Ql (U) Negative Negative [facility] Blood erythrocytes count (nu mber/volume)Ordered By: HEALTH ASSESSMENT on 10-01-2022 RBC (Bld) [#/Vol] 4.99 10*6/uL 4.2-5.4 [facility] Blood hemoglobin measurement (mass/volume)Ordered By: HEALTH ASSESSMENT on 10-01-2022 Hemoglobin (Bld) [Mass/Vol] 14.8 g/dL 12.0-15.0 [facility] Blood platelet mean volumeOr dered By: HEALTH ASSESSMENT on 10-01-2022 Platelet mean volume (Bld) [Entitic vol] 10.3 fL 6.2-12.0 [facility] Determination of erythrocyte mean corpuscular volume (MCV)Ordered By: HEALTH ASSESSMENT on 10-01-2022 MCV (RBC) [Entitic vol] 85.2 fL 81-99 [facility] Direct bilirubinOrdered By: HEALTH ASSESSMENT on 04-28-2023 Bilirubin.direct [Mass/Vol] 0.28 mg/dL 0.00-0.30 [facility] Hematocrit Auto (Bld) [Volum e fraction]Ordered By: HEALTH ASSESSMENT on 10-01-2022 Hematocrit (Bld) [Volume fraction] 42.5 % 37-47 [facility] Ketones Test strip Ql (U)Ord ered By: HEALTH ASSESSMENT on 10-01-2022 Ketones Ql (U) Negative Negative [facility] Laboratory - Chemistry and C hemistry - challengeOrdered By: HEALTH ASSESSMENT on 10-01-2022 ALP [Catalytic activity/Vol] 93 U/L 45-117 [facility] ALT [Catalytic activity/Vol] 59 U/L 13-56 [facility] Cholesterol.total/Mariam sterol in HDL [Mass ratio] 4.10 {ratio} [facility] CO2 [Moles/Vol] 27.0 mmol/L 21.0-32.0 [facility] Globulin (S) [Mass/Vol] 3.5 g/dL 2.2-4.2 [facility] Urea nitrogen/Creatinine [Mass ratio] 16.8 mg/mg 10-20 [facility] Laboratory - Hematology and Cell countsOrdered By: HEALTH ASSESSMENT on 10-01-2022 Erythrocyte distribution width (RBC) [Entitic vol] 39.2 fL 35.1-43.9 [facility] Erythrocyte distribution width (RBC) [Ratio] 12.9 % 11.6-14.6 [facility] MCH (RBC) [Entitic mass] 29.7 pg 27.0-32.0 [facility] Nucleated RBC/100 WBC (Bld) [Ratio] 0 % 0-5 [facility] MCHC Auto (RBC) [Mass/Vol]Or dered By: HEALTH ASSESSMENT on 10-01-2022 MCHC (RBC) [Mass/Vol] 34.8 g/dL 32-36 [facility] Nitrite Test strip Ql (U)Ord ered By: HEALTH ASSESSMENT on 10-01-2022 Nitrite Ql (U) Negative Negative [facility] No Panel InformationOrdered By: HEALTH ASSESSMENT on 10-01-2022 Estimated GFR (MDRD) Amer 59 mL/min >60 [facility] Comment on above: GFR Calc Estimated GFR (MDRD) Non-Af Amer 49 mL/min >60 [facility] Comment on above: Non- GFR Calc Platelets bldOrdered By: [facility] ASSESSMENT on 10-01-2022 Platelets (Bld) [#/Vol] 285 10*3/uL 150-450 [facility] Protein Test strip Ql (U)Ord ered By: HEALTH ASSESSMENT on 10-01-2022 Protein Ql (U) 15 mg/dl Negative [facility] Segmented neutrophils/100 WB C Auto (Bld)Ordered By: HEALTH ASSESSMENT on 10-01-2022 Segmented neutrophils/100 WBC (Bld) 62.6 % 47-70 [facility] Serum or plasma albumin fawad urement (mass/volume)Ordered By: HEALTH ASSESSMENT on 10-01-2022 Albumin [Mass/Vol] 4.0 g/dL 3.2-5.0 [facility] Serum or plasma albumin/glob ulin mass ratioOrdered By: HEALTH ASSESSMENT on 10-01-2022 Albumin/Globulin [Mass ratio] 1.1 {ratio} 0.9-2.4 [facility] Serum or plasma calcium fawad urement (mass/volume)Ordered By: HEALTH ASSESSMENT on 10-01-2022 Calcium [Mass/Vol] 9.2 mg/dL 8.5-10.1 [facility] Serum or plasma cholesterol in HDL measurement (mass/volume)Ordered By: HEALTH ASSESSMENT on 10-01-2022 Cholesterol in HDL [Mass/Vol] 49 mg/dL >40 [facility] Comment on above: The drugs N-Acetylcy steine and Metamizole may falsely depress this assay. Reference Range HDL <40 mg/dL Low HDL Cholesterol HDL >or= 60 mg/dL High HDL Cholesterol Serum or plasma cholesterol in VLDL measurement (mass/volume)Ordered By: HEALTH ASSESSMENT on 10-01-2022 Cholesterol in VLDL [Mass/Vol] 35 mg/dL 5-40 [facility] Serum or plasma creatinine m easurement (mass/volume)Ordered By: HEALTH ASSESSMENT on 10-01-2022 Creatinine [Mass/Vol] 1.19 mg/dL 0.55-1.02 [facility] Comment on above: The validity of the calculated GFR & GFRAA in patients over 70 years has not been determined. Clinical correlation is essential. Serum or plasma low density lipoprotein (LDL) cholesterol measurement (mass/volume)Ordered By: HEALTH ASSESSMENT on 10-01-2022 Cholesterol in LDL [Mass/Vol] 118 mg/dL 0-130 [facility] Serum or plasma urea nitroge n measurement (mass/volume)Ordered By: HEALTH ASSESSMENT on 10-01-2022 Urea nitrogen [Mass/Vol] 20 mg/dL 7-18 [facility] Serum or plasma uric acid me asurement (mass/volume)Ordered By: HEALTH ASSESSMENT on 10-01-2022 Urate [Mass/Vol] 8.2 mg/dL 2.6-6.0 [facility] Comment on above: The drugs N-Acetylcy steine and Metamizole may falsely depress this assay. Thin prep Papanicolaou smear with manual screeningOrdered By: HEALTH ASSESSMENT on 10-01-2022 Thin prep Papanicolaou smear with manual screening 32 U/L 15-37 [facility] Thin prep Papanicolaou smear with manual screening 4 5-15 [facility] Urine blood detectionOrdered By: HEALTH ASSESSMENT on 10-01-2022 RBC Ql (U) 50 /ul Negative [facility] Urine clarityOrdered By: [facility] ASSESSMENT on 10-01-2022 Clarity (U) Clear Clear [facility] Urine color determinationOrd ered By: HEALTH ASSESSMENT on 10-01-2022 Color (U) Yellow Yellow [facility] Urine glucose detectionOrder ed By: HEALTH ASSESSMENT on 10-01-2022 Glucose Ql (U) Normal mg/dl Normal [facility] Urine leukocyte esterase det ection by dipstickOrdered By: HEALTH ASSESSMENT on 10-01-2022 Leukocyte esterase Test strip Ql (U) 500 /ul Negative [facility] Urine pHOrdered By: HEALTH A SSESSMENT on 10-01-2022 pH (U) 6.0 [pH] 5.0 - 8.0 [facility] Urine specific gravity measu rementOrdered By: HEALTH ASSESSMENT on 10-01-2022 Specific gravity (U) [Rel density] 1.015 1.002-1.030 [facility] Urobilinogen Auto test strip Ql (U)Ordered By: HEALTH ASSESSMENT on 10-01-2022 Urobilinogen Ql (U) Normal mg/dl Normal [facility] Bacteria Ur Culton 3 Bacteria identified Cx Nom (U) ORGANISM ID: 1 >=100,000 CFU/ml Escherichia coli ORGANISM ID: 1 (ESCHERICHIA COLI) -- ANTIBIOTIC INTERPRETATION HOSSEIN STATUS REFERENCE RANGE -- Ampicillin S 8 F Susceptible <=8 , Intermediate >8 , Resistant >16 Cefazolin S <=4 F Susceptible 0-16 , Intermediate <0 or >16 , Resistant >16 Ceftriaxone S <=1 F Susceptible <=1 , Intermediate >1 , Resistant >=4 Cefepime S <=1 F Susceptible <=2 , Susceptible-Dose Dependent >2 , Resistant >=16 Ertapenem S <=0.5 F Susceptible <=0.5 , Intermediate >.5 , Resistant >1 Meropenem S <=0.25 F Susceptible <=1 , Intermediate >1 , Resistant >2 Ampicillin/Sulbact S 4 F Susceptible <=8 , Intermediate >8 , Resistant >16 Piperacillin/Tazobac S <=4 F Susceptible <=16 , Intermediate >16 , Resistant >64 Gentamicin S <=1 F Susceptible <=4 , Intermediate >4 , Resistant >8 Tobramycin S <=1 F Susceptible <=4 , Intermediate >4 , Resistant >8 Trimeth sulfameth S <=20 F Susceptible <=40 , Resistant >40 Ciprofloxacin S <=0.25 F Susceptible <0.5 , Intermediate >=.5 , Resistant >=1 Nitrofurantoin S <=16 F Susceptible <=32 , Intermediate >32 , Resistant >64 Abnormal [facility] Comment on above: Performed By: #### 6 30-4 #### [facility] CLIA [id number] [address] [place] [address] OF [facility] CNOVon 08-23-2022 CNOV Office Visit (UCWSTR ) AARON REYNOLDS ([id number]) 1960 F Date Time Provider Department 08/23/22 5:15 PM DERRICK SINGLETON [facility] During your visit today, we recorded the following information about you: Temperature Pulse Respiration Blood pressure 97.8 degrees 70/minute 20/minute 142/90 Weight 84.6 kg Derrick Singleton MD 08/23/2022 5:36 PM Signed Patient presents with: UTI: Burning, pelvic pain, blood,body aches, chills x 1 day HPI: Symptoms started today. Dysuria: Yes Frequency: Yes Hematuria: Yes Nausea: No Fever or chills: shaky chilled Back pain: No Abdominal pain: pelvic pressure Prior UTI: Yes, remotely Personal history of kidney stones: No Family history of kidney stones: No PAST MEDICAL HISTORY Diagnosis Date Essential hypertension, benign Migraines PAST SURGICAL HISTORY Procedure Laterality Date DILATION AND CURETTAGE DXAND/THER NONOBSTETRIC 06/06/1982 Dilation AND curettage LAPS SURG CHOLECYSTECTOMY W/CHOLANGIOGRAPHY 04/18/2012 with umbilical hernia repair TONSILLECTOMY PRIMARY/SECONDARY Tonsillectomy MEDICATIONS: Current Outpatient Medications Medication Sig olmesartn/hydrochlorot hiazide(BENICAR HCT 20 MG-12.5 MG TAB) Take one(1) tablet daily. pantoprazole sodium(PROTONIX 40 MG TAB) Take one(1) tablet daily. No current facility-administered medications for this visit. ALLERGIES: ALLERGIES Allergen Reactions Penicillins Sulfa (Sulfonamide * Symmetral [Other] VITALS: BP 142/90 Pulse 70 Temp 36.6 ?C (97.8 ?F) Resp 20 Wt 84.6 kg (186 lb 6.4 oz) SpO2 100% PHYSICAL EXAM: GEN: NAD HEENT: EOMI, conjunctiva clear, HEART: regular rate and rhythm, no murmurs LUNGS: clear to auscultation, no wheezes or crackles, no increased WOB ABDOMEN: Soft, nondistended, no masses, no suprapubic tenderness BACK: No CVA tenderness ASSESSMENT/PLAN: 1. Burning with urination - ICD9: 788.1, ICD10: R30.0 - UA positive for maddison esterase and hematuria. Suspect UTI. - UA DIP, URINE (POC) - URINE CULTURE - NITROFURANTOIN MONOHYDRATE AND MACROCRYSTAL 100 MG ORAL CAP Patient advised to follow-up for reevaluation of hematuria if no infection is found on culture. Derrick Singleton MD Allergies As of Date: 08/23/2022 Noted Allergy Reaction PENICILLINS 08/23/2005 SULFA (SULFONAMIDE ANTIBIOTICS) 08/23/2005 SYMMETRAL [Other] 08/23/2005 Date Reviewed: 08/23/2022 Reviewed by: Elda Owusu MA - Fully Assessed Reason for Visit: UTI [116] Cmt: Burning, pelvic pain, blood,body aches, chills x 1 day Primary Visit Diagnosis:Burning with urination [R30.0] Order(s):UA DIP, URINE (POC) [[id number]] Order #: [id number]. #:[id number] URINE CULTURE [SQURCUL] Order #: [id number]. #:[id number] nitrofurantoin monohydrate and macrocrystal (MACROBID) 100 mg capsuleTake 1 capsule by mouth twice daily with meals for 5 days.Disp: 10 capsuleRfl: 0 Prescriptions as of 08/23/2022 - nitrofurantoin monohydrate and macrocrystal (MACROBID) 100 mg capsule Take 1 capsule by mouth twice daily with meals for 5 days. - olmesartn/hydrochlorot hiazide(BENICAR HCT 20 MG-12.5 MG TAB) Take one(1) tablet daily. - pantoprazole sodium(PROTONIX 40 MG TAB) Take one(1) tablet daily. Problem List As Of Date 08/23/2022 Noted Resolved MASTALGIA [N64.4] 08/23/2005 Cholelithiasis NOS [K80.20] 11/06/2009 Cholecystitis with cholelithiasis [K80.10] 04/17/2012 Prescriptions ordered this encounter Disp Refills Start End NITROFURANTOIN MONOHYDRATE AND MACROCR* 10 c* 0 08/23/2022 08/28/2022 Route: ORAL Sig: Take 1 capsule by mouth twice daily with meals for 5 days. Medications Discontinued During This Encounter Prescriptions - codeine-guaiFENesin (ROBITUSSIN AC) 10-100 mg/5 mL syrup (Discontinued) Take 5-10 mL by mouth four times daily as needed for Cough. May cause drowsiness. - ketorolac 10 mg tablet (Discontinued) Take 1 tablet by mouth every 6 hours as needed. - TOPIRAMATE 100 MG TAB (Discontinued) Reported on 08/23/2022 Encounter Status:Closed by DERRICK SINGLETON on 08/23/22 Normal [facility] UA DIP, URINE (POC)on 2022 BILIRUBIN UA (POCT) Negative Negative [facility] CLARITY UA (POCT) Slightly Cloudy Cl [facility] COLOR UA (POCT) Yellow [facility] GLUCOSE UA (POCT) Negative Negative mg/dL [facility] HEMOGLOBIN/BLOOD UA (POCT) Large Abnormal Negative [facility] KETONE UA (POCT) Negative Negative mg/dL [facility] LEUKOCYTES UA (POCT) Small Abnormal Negative [facility] NITRITE UA (POCT) Negative Negative [facility] PH UA (POCT) 6.0 4.5 - 8.0 [facility] Protein Ql (U) Negative Negative mg/dL [facility] SPECIFIC GRAVITY UA (POCT) <=1.005 Abnormal 1.005 - 1.030 [facility] UROBILINOGEN UA (POCT) 0.2 E.U./dL Blanca l E.U./dL [facility] Cervical or vagninal specime n microscopic examination by cytology stain (reported ason 04-01-2022 Cytology report Cyto stain Doc (Cvx/Vag) Comment . [facility] Work Phone: Comment on above: The Pap smear is a s creening test designed to aid in thedetection of premalignant and malignant conditions of theuterine cervix. It is not a diagnostic procedure andshould not be used as the sole means of detecting cervicalcancer. Both false-positive and false-negative reports dooccur. Detection in cervical specim en of any of human papilloma virus (HPV) 16, 18, 31, 33,on 04-01-2022 HPV 16+18+31+33+35+39+45+51 +52+56+58+59+66+68 DNA Probe+sig amp Ql (Cvx) Negative Negative [facility] Work Phone: Comment on above: This nucleic acid am plification test detects fourteen high-risk HPV types (16,18,31,33,35,39,45,51,52,56,58,59,66,68)without differentiation. Laboratory - Cytologyon 03-07 Hand Rounder Cyto stain Nom (Cvx/Vag) [ID] Comment . [facility] Work Phone: Comment on above: Ba Delgadillo totechnologist Laboratory - Miscellaneous t estson 04-01-2022 Service comment (Unsp spec) [Interp] Comment . [facility] Work Phone: Comment on above: This liquid based Th inPrep(R) pap test was screened withthe use of an image guided system. Service comment (Unsp spec) [Interp] . . [facility] Work Phone: No Panel Informationon 04-01 Pathology report final diagnosis Narrative Comment . [facility] Work Phone: Comment on above: NEGATIVE FOR INTRAEP ITHELIAL LESION OR MALIGNANCY. Lab Report: Potassiumon 02-04 Potassium 3.6 mmol/L Invalid Interpretation Code 3.5-5.1 [facility] Work Phone: Lab Report: Basic Metabolic Profile (BMP)on 02-15-2017 Anion gap 11 mmol/L Invalid Interpretation Code 10-18 [facility] Work Phone: [phone] Anion gap molar conc 11 mmol/L 10-18 [facility] Work Phone: [phone] Calcium mass conc 8.8 mg/dL Invalid Interpretation Code 8.5-10.1 [facility] Work Phone: [phone] Chloride molar conc 109 mmol/L High 98-107 [facility] Work Phone: [phone] CO2 24.0 mmol/L Invalid Interpretation Code 21.0-32.0 [facility] Work Phone: [phone] CO2 ppres (BldV) 24.0 mmol/L 21.0-32.0 [facility] Work Phone: [phone] Creatinine mass conc 1.06 mg/dL High 0.55-1.[address] [facility] Work Phone: [phone] eGFR (non-black) 68 mL/min/{1.73_m2} Invalid Interpretation Code >60 [facility] Work Phone: [phone] EST GFR - AA 68 mL/min >60 [facility] Work Phone: [phone] GFR/1.73 sq M predicted among non-blacks MDRD vol rate/area (S/P/Bld) 57 mL/min/{1.73_m2} Low >[address] [facility] Work Phone: [phone] Glucose 110 mg/dL Invalid Interpretation Code 70-110 [facility] Work Phone: [phone] Glucose mass conc 110 mg/dL 70-110 [facility] Work Phone: [phone] Potassium molar conc 3.2 mmol/L Low 3.5-5.[address] [facility] Work Phone: [phone] Sodium molar conc 144 mmol/L Invalid Interpretation Code 136-145 [facility] Work Phone: [phone] Urea nitrogen mass conc 16 mg/dL Invalid Interpretation Code 7-18 [facility] Work Phone: [phone] Urea nitrogen/Creatinine mass ratio 15.1 RATIO Invalid Interpretation Code 10-20 [facility] Work Phone: [phone] Lab Report: CBC-Complete Blo od Cnt No Diffon 02-15-2017 Erythrocyte distribution width Ratio (RBC) 41.2 fL 35.1-43.9 [facility] Work Phone: [phone] Erythrocyte distribution width Ratio (RBC) 13.2 % 11.6-14.6 [facility] Work [phone] Erythrocytes (RBC) 4.29 10*6/uL Invalid Interpretation Code 4.2-5.4 [facility] Work [phone] Hematocrit (HCT) 36.6 % Low 37-47 [facility] Work Phone: [phone] Hematocrit Volume Fraction (Bld) 36.6 % Low 37-47 [facility] Work Phone: [phone] Hemoglobin mass conc (Bld) 12.5 g/dL Invalid Interpretation Code 12.0-15.0 [facility] Work Phone: [phone] MCH 29.1 pg Invalid Interpretation Code 27.0-32.0 [facility] Work Phone: [phone] MCH Entitic mass (RBC) 29.1 pg 27.0-32.0 [facility] Work Phone: [phone] MCHC 34.2 G/GL Invalid Interpretation Code 32-36 [facility] Work Phone: [phone] MCHC mass conc (RBC) 34.2 G/GL 32-[address] [facility] Work Phone: [phone] MCV 85.3 fL Invalid Interpretation Code 81-99 [facility] Work Phone: [phone] MCV Entitic volume (RBC) 85.3 fL 81-99 [facility] Work Phone: [phone] Platelet mean volume Entitic volume (Bld) 10.1 fL 6.2-12.0 [facility] Work Phone: [phone] Platelets 207 10*3/mm3 Invalid Interpretation Code 150-450 [facility] Work Phone: [phone] Platelets #/vol (Bld) 207 10*3/mm3 150-450 [facility] Work Phone: [phone] PMV by Heidy 10.1 fL Invalid Interpretation Code 6.2-12.0 [facility] Work Phone: [phone] RBC #/vol (Bld) 4.29 10*6/uL 4.2-5.4 [facility] [employer] Work Phone: [phone] RDW-CA 13.2 % Invalid Interpretation Code 11.6-14.6 [facility] [employer] Work Phone: [phone] red blood cell distribution width, size density 41.2 fL Invalid Interpretation Code 35.1-43.9 [facility] [employer] Work Phone: [phone] WBC #/vol (Bld) 5.8 10*3/uL 4.4-11.0 [facility] [employer] Work Phone: [phone] WBC (Leukocytes) 5.8 10*3/uL Invalid Interpretation Code 4.4-11.0 [facility] [employer] Work Phone: [phone]) Lab Report: Partial Thrombop last Timeon 02-15-2017 aPTT Coag time (Bld) 28.7 s Invalid Interpretation Code 24.1-36.2 [facility] [employer] Work Phone: [phone] Lab Report: Prothrombin Time w/INRon 02-15-2017 INR Coag RelTime (PPP) 1.0 {INR} [facility] [employer] Work Phone: [phone] INR in blood by coagulation 1.0 {INR} Invalid Interpretation Code [facility] [employer] Work Phone: [phone] Prothrombin time (PT) Coag time (PPP) 13 s Invalid Interpretation Code 11.7-14.9 [facility] [employer] Work Phone: [phone] Office Visiton 02-10-2017 Documentation of current medications (procedure) Done Invalid Interpretation Code [facility] [employer] Work Phone: [phone] Protein mass conc Done [facility] [employer] Work Phone: [phone] 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 Tobacco smoking status NHIS Never smoker [employer] Work Phone: [phone] Tobacco use CPHS Never smoker Invalid Interpretation Code [facility] [employer] Work Phone: [phone] Clinical Lists Update: 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 Cholesterol in HDL mass conc 75 mg/dL Invalid Interpretation Code [facility] [employer] Work Phone: [phone] Cholesterol in LDL mass conc 93 mg/dL Invalid Interpretation Code [facility] Work Phone: [phone] Cholesterol mass conc 178 mg/dL Invalid Interpretation Code [facility] Work Phone: [phone] Thyrotropin Qn 8.19 u[iU]/mL High [facility] Work Phone: [phone] Triglyceride mass conc 50 mg/dL Invalid Interpretation Code [facility] Work Phone: [phone] Vital Signs Date Time Vital Sign Value Performing Clinician Facility 12-05-2024 08:04-0400 Body height 160.[address] Brandon Matson MD Work Phone: [facility] 12-05-2024 08:04-0400 Body mass index (BMI) [Ratio] 32.4 kg/m2 Dr. Brandon Matson MD Work Phone: [facility] 12-05-2024 08:04-0400 Body weight 83.[address] Brandon Matson MD Work Phone: [facility] 12-05-2024 08:04-0400 Diastolic blood pressure 82 mm[Hg] Dr. Brandon Matson MD Work Phone: [facility] 12-05-2024 08:04-0400 Systolic blood pressure 120 mm[Hg] Dr. Brandon Matson MD Work Phone: [facility] 11-22-2024 18:12-0400 Body height 160.[address] Brandon Matson MD Work Phone: [facility] 11-22-2024 18:12-0400 Body mass index (BMI) [Ratio] 32.3 kg/m2 Dr. Brandon Matson MD Work Phone: [facility] 11-22-2024 18:12-0400 Body temperature 97.2 [degF] Dr. Brandon Matson MD Work Phone: [facility] 11-22-2024 18:12-0400 Body weight 82.[address] Brandon Matson MD Work Phone: [facility] 11-22-2024 18:12-0400 Diastolic blood pressure 78 mm[Hg] Dr. Brandon Matson MD Work Phone: [facility] 11-22-2024 18:12-0400 Heart rate 55 /min Dr. Brandon Matson MD Work Phone: [facility] 11-22-2024 18:12-0400 Respiratory rate 16 /min Dr. Brandon Matson MD Work Phone: [facility] 11-22-2024 18:12-0400 SaO2% (BldA) [Mass fraction] 98 % Dr. Brandon Matson MD Work Phone: [facility] 11-22-2024 18:12-0400 Systolic blood pressure 128 mm[Hg] Dr. Brandon Matson MD Work Phone: [facility] 07-02-2024 08:23-0500 Body height 160.[address] Brandon Matson MD Work Phone: [facility] 07-02-2024 08:23-0500 Body mass index (BMI) [Ratio] 30.9 kg/m2 Dr. Brandon Matson MD Work Phone: [facility] 07-02-2024 08:23-0500 Body temperature 97.2 [degF] Dr. Brandon Matson MD Work Phone: [facility] 07-02-2024 08:23-0500 Body weight 79.[address] Brandon Matson MD Work Phone: [facility] 07-02-2024 08:23-0500 Diastolic blood pressure 62 mm[Hg] Dr. Brandon Matson MD Work Phone: [facility] 07-02-2024 08:23-0500 Heart rate 62 /min Dr. Brandon Matson MD Work Phone: [facility] 07-02-2024 08:23-0500 Respiratory rate 16 /min Dr. Brandon Matson MD Work Phone: [facility] 07-02-2024 08:23-0500 Systolic blood pressure 124 mm[Hg] Dr. Brandon Matson MD Work Phone: [facility] 05-18-2023 15:58-0500 Body height 160.[address] Brandon Matson Work Phone: [facility] 05-18-2023 15:58-0500 Body mass index (BMI) [Ratio] 31.8 kg/m2 Dr. Brandon Matson Work Phone: [facility] 05-18-2023 15:58-0500 Body weight 81.[address] Brandon Matson Work Phone: [facility] 05-18-2023 15:58-0500 Diastolic blood pressure 82 mm[Hg] Dr. Brandon Matson Work Phone: [facility] 05-18-2023 15:58-0500 Heart rate 59 /min Dr. Brandon Matson Work Phone: [facility] 05-18-2023 15:58-0500 Respiratory rate 16 /min Dr. Brandon Matson Work Phone: [facility] 05-18-2023 15:58-0500 SaO2% (BldA) [Mass fraction] 94 % Dr. Brandon Matson Work Phone: [facility] 05-18-2023 15:58-0500 Systolic blood pressure 124 mm[Hg] Dr. Brandon Matson Work Phone: [facility] 04-27-2023 13:51-0500 Body height 160.[address] Brandon Matson Work Phone: [facility] 04-27-2023 13:51-0500 Body mass index (BMI) [Ratio] 31.2 kg/m2 Dr. Brandon Matson Work Phone: [facility] 04-27-2023 13:51-0500 Body temperature 97.3 [degF] Dr. Brandon Matson Work Phone: [facility] 04-27-2023 13:51-0500 Body weight 79.[address] Brandon Matson Work Phone: [facility] 04-27-2023 13:51-0500 Diastolic blood pressure 80 mm[Hg] Dr. Brandon Matson Work Phone: [facility] 04-27-2023 13:51-0500 Heart rate 58 /min Dr. Brandon Matson Work Phone: [facility] 04-27-2023 13:51-0500 Respiratory rate 16 /min Dr. Brandon Matson Work Phone: [facility] 04-27-2023 13:51-0500 SaO2% (BldA) [Mass fraction] 97 % Dr. Brandon Matson Work Phone: [facility] 04-27-2023 13:51-0500 Systolic blood pressure 138 mm[Hg] Dr. Brandon Matson Work Phone: [facility] 04-20-2023 09:47-0500 Body temperature 98.2 [degF] Dr. Brandon Matson Work Phone: [facility] 04-20-2023 09:47-0500 Diastolic blood pressure 75 mm[Hg] Dr. Brandon Matson Work Phone: [facility] 04-20-2023 09:47-0500 Heart rate 58 /min Dr. Brandon Matson Work Phone: [facility] 04-20-2023 09:47-0500 SaO2% (BldA) [Mass fraction] 95 % Dr. Brandon Matson Work Phone: [facility] 04-20-2023 09:47-0500 Systolic blood pressure 154 mm[Hg] Dr. Brandon Matson Work Phone: [facility] 01-05-2023 10:32-0400 Body height 160.[address] Chad Carias Work Phone: [facility] 01-05-2023 10:32-0400 Body mass index (BMI) [Ratio] 31.1 kg/m2 Dr. Chad Carias Work Phone: [facility] 01-05-2023 10:32-0400 Body temperature 95.6 [degF] Dr. Chad Carias Work Phone: [facility] 01-05-2023 10:32-0400 Body weight 79.[address] Chad Carias Work Phone: [facility] 01-05-2023 10:32-0400 Diastolic blood pressure 88 mm[Hg] Dr. Chad Carias Work Phone: [facility] 01-05-2023 10:32-0400 Heart rate 71 /min Dr. Chad Carias Work Phone: [facility] 01-05-2023 10:32-0400 Respiratory rate 18 /min Dr. Chad Carias Work Phone: [facility] 01-05-2023 10:32-0400 SaO2% (BldA) [Mass fraction] 98 % Dr. Chad Carias Work Phone: [facility] 01-05-2023 10:32-0400 Systolic blood pressure 114 mm[Hg] Dr. Chad Carias Work Phone: [facility] 10-07-2022 13:37-0400 Body height 160.[address] Chad Carias Work Phone: [facility] 10-07-2022 13:37-0400 Body mass index (BMI) [Ratio] 32.1 kg/m2 Dr. Chad Carias Work Phone: [facility] 10-07-2022 13:37-0400 Body temperature 96.5 [degF] Dr. Chad Carias Work Phone: [facility] 10-07-2022 13:37-0400 Body weight 82.[address] Chad Carias Work Phone: [facility] 10-07-2022 13:37-0400 Diastolic blood pressure 76 mm[Hg] Dr. Chad Carias Work Phone: [facility] 10-07-2022 13:37-0400 Heart rate 60 /min Dr. Chad Carias Work Phone: [facility] 10-07-2022 13:37-0400 Respiratory rate 18 /min Dr. Chad Carias Work Phone: [facility] 10-07-2022 13:37-0400 SaO2% (BldA) [Mass fraction] 97 % Dr. Chad Carias Work Phone: [facility] 10-07-2022 13:37-0400 Systolic blood pressure 124 mm[Hg] Dr. Chad Carias Work Phone: [facility] 08-23-2022 17:23-0400 Body temperature 97.81 [degF] Derrick Singleton MD Work Phone: [facility] 08-23-2022 17:23-0400 Body weight 84.55 kg Derrick Singleton MD Work Phone: [facility] 08-23-2022 17:23-0400 Diastolic blood pressure 90 mm[Hg] Derrick Singleton MD Work Phone: [facility] 08-23-2022 17:23-0400 Heart rate 70 /min Derrick Singleton MD Work Phone: [facility] 08-23-2022 17:23-0400 Respiratory rate 20 /min Derrick Singleton MD Work Phone: [facility] 08-23-2022 17:23-0400 SaO2% (BldA) [Mass fraction] 100 % Derrick Singleton MD Work Phone: [facility] 08-23-2022 17:23-0400 Systolic blood pressure 142 mm[Hg] Derrick Singleton MD Work Phone: [facility] 02-10-2017 15:21-0400 BMI (Body Mass Index) 27.45 kg/m2 Joel Mahajan MD [facility] Work Phone: 02-10-2017 15:21-0400 BP Diastolic 62 mm[Hg] Joel Mahajan MD [facility] Work Phone: 02-10-2017 15:21-0400 BP Systolic 112 mm[Hg] Joel Mahajan MD [facility] Work Phone: 02-10-2017 15:21-0400 Height 160.02 cm Joel Mahajan MD [facility] Work Phone: 02-10-2017 15:21-0400 Pulse (Heart Rate) 68 /min Joel Mahajan MD [facility] Work Phone: 02-10-2017 15:21-0400 Respiratory Rate 18 /min Joel Mahajan MD [facility] Work Phone: 02-10-2017 15:21-0400 Weight 70.31 kg Joel Mahajan MD [facility] Work Phone: Encounters Encounter Date Encounter Type Care Provider Facility Start: 04-04-2025 ambulatory BRANDON MATSON MD F acility:[facility] Start: 12-05-2024 End: 12-05-2024 Patient encounter procedure Susan MONTALVO -[facility] Work Phone: Start: 12-05-2024 End: 12-05-2024 Patient encounter status Susan Urbina NP-Marcel[facility] Start: 12-05-2024 End: 12-05-[address] Brandon Matson MD Work Phone: [facility] Start: 11-22-2024 End: 11-22-[address] Brandon Matson MD [facility] Work Phone: Start: 11-22-2024 End: 11-22-[address] Brandon Matson MD [facility] Start: 11-22-2024 End: 11-22-[address] Brandon Matson MD Work Phone: [facility] Work Phone: Start: 11-19-2024 Registered Referred [facility] -[facility] Work Phone: Start: 11-19-2024 ambulatory Efpromise Coronae Facili ty:[facility] Start: 09-05-2024 End: 09-05-[address] Brandon Matson MD Work Phone: [facility] Work Phone: Start: 09-05-2024 End: 09-05-2024 Patient encounter procedure Susan Urbina SURGICAL GARMENT FITTER-C -Outpatient Breast Imaging Work Phone: Start: 09-05-2024 End: 09-05-2024 ambulatory Susan Urbina SURGICAL GARMENT FITTER Facility:[facility] Start: 07-02-2024 End: 07-02-[address] Brandon Matson MD [facility] Work Phone: Start: 07-02-2024 End: 07-02-2024 ambulatory Efpromise Coronae Facility:[facility] Start: 07-02-2024 End: 07-02-2024 ambulatory Efpromise Matson Facility:[facility] Start: 04-11-2024 ambulatory Efewongbe Oleghe Facili ty:[facility] Start: 04-11-2024 End: 04-11-2024 ambulatory Efewmidway parkportillo Coronae Facility:[facility] Start: 04-02-2024 End: 04-02-2024 ambulatory Efewongbe Oleghe Facility:[facility] Start: 02-02-2024 End: 02-02-2024 ambulatory Susan Carlitos NP Facility:[facility] Start: 01-19-2024 End: 01-19-2024 ambulatory Brandon Matson Facility:[facility] Start: 12-16-2023 ambulatory SALLY DE LOS SANTOSHARDEEP DO Fac ility:B Start: 12-16-2023 End: 03-29-2024 Physical therapy management SALLY WALKER DO [facility] Start: 09-05-2023 End: 09-05-[address] Brandon Matson Work Phone: [facility] Work Phone: Start: 09-05-2023 End: 09-05-[address] Brandon Matson Work Phone: [facility]-Outpatient Breast Imaging Work Phone: Start: 05-18-2023 End: 05-18-[address] Brandon Matson Work Phone: [facility] Internal Medicine Work Phone: Start: 05-12-2023 End: 05-12-[address] Brandon Matson Work Phone: [facility] Work Phone: Start: 05-12-2023 End: 05-12-[address] Brandon Matson Work Phone: [facility]-Physical Therapy Work Phone: Start: 04-29-[address] Stephanie Matson Work Phone: [facility]-Physical Therapy Work Phone: Start: 04-27-2023 End: 04-27-[address] Brandon Matson Work Phone: [facility] Work Phone: Start: 04-27-2023 End: 04-27-[address] Brandon Matson Work Phone: [facility] Internal [facility] Work Phone: Start: 04-20-2023 End: 04-20-[address] Brandon Matson Work Phone: [facility] Work Phone: Start: 01-05-2023 End: 01-05-[address] Chad Carias Work Phone: [facility] Work Phone: Start: 01-05-2023 End: 01-05-[address] Chad Carias Work Phone: [facility] Internal [facility] Work Phone: Start: 10-12-2022 End: 10-12-[address] Chad Carias Work Phone: [facility] Work Phone: Start: 10-12-2022 End: 10-12-[address] Chad Carias Work Phone: [facility] Start: 10-07-2022 End: 10-07-[address] Chad Carias Work Phone: [facility] Internal Medicine Start: 10-01-[address] Chad Carias Work Phone: [facility] Start: 09-01-2022 Non-patient / Non-visit Dr. Chad Carias Work Phone: [facility] Internal Medicine Start: 08-23-2022 End: 08-23-2022 ambulatory Facility:[facility] Start: 08-23-2022 End: 08-23-2022 Patient encounter procedure Derrick Singleton MD Work Phone: [facility] Comment on above: Burning with urinati on (Primary Dx) Start: 07-02-[address] Chad Carias Work Phone: [facility]-Employee Health Start: 05-18-2022 End: 05-18-2022 ambulatory [facility] Work Phone: Start: 05-18-2022 End: 05-18-2022 Patient encounter procedure [facility]-Radiology, [place] Start: 04-07-2022 End: 04-07-2022 Patient encounter procedure [facility]-Outpatient Breast Imaging Start: 04-01-2022 End: 04-01-2022 ambulatory [facility] Work Phone: Start: 04-01-2022 End: 04-01-2022 Patient encounter procedure [facility]-Laboratory, Specimen Procedures Date Procedure Procedure Detail Performing Clinician Start: 11-19-2024 Serum inorganic phos phate measurement Dr. Brandon Matson MD Work Phone: Start: 09-05-2024 Screening mammography Kolton Matson MD Work Phone: Start: 09-05-2023 Screening mammography Kolton Matson Work Phone: Start: 04-20-2023 Plain x-ray of elbow Dr Zach Matson Work Phone: Start: 04-20-2023 Plain X-ray of shoulder Dr. Brandon Matson Work Phone: Start: 10-12-[address] Chad Carias Work Phone: Start: 08-23-2022 Urnls dip stick/tabl et rgnt auto w/o microscopy Aliza Kim APRN.CNP Work Phone: Start: 05-18-2022 Radiography of thora cic spine Start: 05-18-2022 X-ray of cervical spine Start: 04-07-2022 Screening mammography Start: 02-10-2017 End: 02-16-2017 *BMP Joel Mahajan MD Work Phone: Start: 02-10-2017 End: 02-16-2017 aPTT Joel Mahajan MD Work Phone: Start: 02-10-2017 End: 02-16-2017 CBC W Auto Differential panel - Blood Joel Mahajan MD Work Phone: Start: 02-10-2017 End: 02-21-2017 Chest x-ray Joel Mahajan MD Work Phone: Start: 02-10-2017 End: 02-16-2017 Coagulation factor induced.INR assay in platelet poor plasma Joel Mahajan MD Work Phone: Start: 02-10-2017 End: 02-10-2017 HARLEEN Mahajan MD Work Phone: Start: 02-10-2017 End: 02-21-2017 Electrocardiogram, complete Joel molina MD Work Phone: Start: 02-10-2017 End: 02-10-2017 Follow Up Appt 6 months Joel Mahajan MD Work Phone: Start: 02-10-2017 End: 02-21-2017 Left Heart Cath Joel Mahajan MD Work Phone: Start: 08-12-2016 End: 02-02-2017 HARLEEN Mahajan MD Work Phone: Start: 08-12-2016 End: 02-02-2017 Follow Up Appt 1 year Rosa Gonzales Work Phone: Start: 08-12-2016 End: 08-12-2016 Follow Up Appt 6 months Joel Mahajan MD Work Phone: Plan of Treatment Date Care Activity Detail Author Start: 04-20-2023 Patient referral [facility] Work Phone: Start: 06-06-2022 DEPRESSION ASSESSMENT DEPRESSION ASSESSMENT [facility] Start: 08-22-2017 End: 08-22-2017 Appointment Appointment [facility] Work Phone: Start: 02-10-2017 End: 02-16-2017 *BMP *BMP [facility] Work Phone: Start: 02-10-2017 End: 02-21-2017 *EKG (Done in Hospital) *EKG (Done in Hospital) [facility] Work Phone: Start: 02-10-2017 End: 02-16-2017 aPTT *PTT-Partial Thromboplastin Time [facility] Work Phone: Start: 02-10-2017 End: 02-16-2017 aPTT Coag time (PPP) *PTT-Partial Thromboplastin Time [facility] Work Phone: Start: 02-10-2017 End: 02-16-2017 CBC W Auto Differential panel - Blood *CBC without Diff [facility] Work Phone: Start: 02-10-2017 End: 02-21-2017 Chest x-ray X-Ray, Chest, PA & Lateral [facility] Work Phone: Start: 02-10-2017 End: 02-16-2017 Coagulation factor induced.INR assay in platelet poor plasma *PT/INR [facility] Work Phone: Start: 02-10-2017 End: 02-10-2017 HARLEEN CANSECO [facility] Work Phone: Start: 02-10-2017 End: 02-10-2017 Follow Up Appt 6 months Follow Up Appt 6 months [facility] Work Phone: Start: 02-10-2017 End: 02-14-2017 Left Heart Cath Left Heart Cath [facility] Work Phone: Start: 08-12-2016 End: 02-02-2017 DJN DJN [facility] Work Phone: Start: 08-12-2016 End: 02-02-2017 Follow Up Appt 1 year Follow Up Appt 1 year [facility] Work Phone: Start: 08-12-2016 End: 08-12-2016 Follow Up Appt 6 months Follow Up Appt 6 months [facility] Work Phone: Start: 2008 SHINGRIX VACCINE (1 of 2) SHINGRIX VACCINE (1 of 2) [facility] Start: 11-03-2003 COLOGUARD (FIT-DNA) COLOGUARD (FIT-DNA) [facility] Start: 11-03-2003 Colonoscopy COLONOSCOPY [facility] Start: 11-03-2003 COLORECTAL CANCER SCREENING COLORECTAL CANCER SCREENING [facility] Start: 11-03-[address] COLONOGRAPHY [facility] Start: 11-03-2003 DIABETES SCREEN DIABETES SCREEN [facility] Start: 11-03-2003 FECAL OCCULT BLOOD FECAL OCCULT BLOOD [facility] Start: 11-03-2003 LIPID SCREEN LIPID SCREEN [facility] Start: 11-03-2003 SIGMOIDOSCOPY SIGMOIDOSCOPY [facility] Start: 1998 Mammography MAMMOGRAM [facility] Start: 1988 HPV TESTING HPV TESTING [facility] Start: 11-03-1979 PAP TESTING PAP TESTING [facility] Start: 1977 Urine microalbumin profile DTAP,TDAP,TD (1 - Tdap) [facility] Start: 1976 HEPATITIS C SCREENING HEPATITIS C SCREENING [facility] Start: 1976 HIV SCREENING HIV SCREENING [facility] Bacteria identified in Urine by Culture URINE CULTURE Microbiology Routine Burning with urination 08/23/2022 6:33 PM EDT [facility] Work Phone: Hemoglobin A1c/Hemoglobin.total in Blood [facility] Path report.final Dx Spec [facility] Work Phone: Patient referral [facility] Work Phone: Urine microalbumin/creatinine ratio measurement [facility] Immunizations Immunization Date Immunization Notes Care Provider Fa cility 03-24-2023 influenza, injectabl e, quadrivalent, preservative free Dr. Brandon Matson Work Phone: [facility] 03-29-2022 influenza, injectabl e, quadrivalent, preservative free Dr. Brandon Matson Work Phone: [facility] 03-29-2022 influenza, seasonal, injectable Dr. Chad Carias Work Phone: [facility] 12-10-2021 Covid (Moderna) Dr. Chad goyal Work Phone: [facility] 04-16-[address] [facility] (Moderna) Dr. Chad goyal Work Phone: [facility] 03-02-[address] Chad Carias Work Phone: [facility] 12-15-[address] Chad Carias Work Phone: [facility] 09-03-2020 Covar (Moderna) Dr. Chad goyal Work Phone: [facility] 08-06-[address] [facility] (Moderna) Dr. Chad goyal Work Phone: [facility] 03-03-2018 influenza, injectabl e, quadrivalent, preservative free Dr. Brandon Matson Work Phone: [facility] 03-03-2018 influenza, seasonal, injectable [facility] 03-11-2017 influenza, injectabl e, quadrivalent, preservative free Dr. Brandon Matson Work Phone: [facility] 03-11-2017 influenza, seasonal, injectable [facility] 03-04-2016 influenza, injectabl e, quadrivalent, preservative free Dr. Brandon Matson Work Phone: [facility] 03-04-2016 influenza, seasonal, injectable [facility] 04-21-2015 influenza, injectabl e, quadrivalent, preservative free Dr. Brandon Matson Work Phone: [facility] 04-21-2015 influenza, seasonal, injectable [facility] 03-06-2014 influenza, injectabl e, quadrivalent, preservative free Dr. Brandon Matson Work Phone: [facility] 03-06-2014 influenza, seasonal, injectable [facility] Payers Date Payer Category Payer Self-pay [id number] 2023 Private Health Insurance [id number] 2023 Medicare [id number] 2022 Unknown [id number] 2022 Unknown [employer] PPO [id number] 2022-Present [phone] [address] [place] [address] PPO [id number] 2016 Unknown [id number] 1960 Unknown [id number] 1960 Unknown [id number] Private Health Insurance [facility] [id number] Unknown [facility] [id number] Unknown [id number] Unknown [id number] 462 Unknown [id number] 462 Unknown [id number] 462 Unknown [id number] 462 Unknown [id number] 462 Unknown [id number] 462 Unknown [id number] 462 Unknown [id number] 462 Unknown [id number] 462 Unknown [id number] 462 Social History Date Type Detail Facility Start: 07-20-2018 End: 05-18-2023 Tobacco smoking status HIIS Unknown if ever smoked [facility] Start: 1960 Sex Assigned At Female W [facility] Start: 12-05-2023 [facility] Start: 08-23-2022 Alcohol intake Current non-dr tree feller of alcohol (finding) [facility] Start: 1960 Sex Assigned At Not on file [facility] Tobacco smoking status No Smokin g Status Entered [facility] Start: 09-11-2024 Sex Female (finding) [facility] Functional Status Date Assessment Result Facility 12-16-2023 Functional Status Home Living Ad ditional Information OBJECTIVE Vitals: BP automatic 145/85, no symptoms Posture: forward shoulder and slight forward head posture Gait: amb with no AD and no deficits observed Transfers: WNL Sensation: no abnormalities or asymmetries Edema: none Cervical ROM: WFL bilateral, except tightness of mod restriction lateral flexion to L Shoulder ROM: WFL no limitations all planes bilateral Special Tests [place] et al:RTC Painful Arc: pos L Drop Arm: neg bilat Infraspinatus Test: negative bilateral Belly press (subscap): pos L Full Can (delt): negative bilateral Empty Can (impin): pos L FOTO FS score: 61 out of 100 [facility] Clinical Notes 04-01-2022 to 11-22-2024 Note Date & Type Note Facility 11-22-2024 Evaluation note Diagnosis Onset Date Resolution Gout chronic November 22 6:04pm Hypertension chronic November 22, 025 6:04pm Migraines chronic November 22 6:04pm Health care maintenance deleted J une 2024 6:04pm Encounter for routine gynecological examination noneactive December 05, 2024 8:01am [facility] [employer] Work Phone: [phone] Evaluation note* Diagnosis Onset Date Resolution Status Admit Date Dyspnea acute July 02, 2024 8:19am Gout chronic July 02, 2024 8:19am Hypertension chronic June 8:19am Migraines chronic July 02, 2024 8:19am [facility] Work Phone: 1(570) 460-103412-07-2023 Discharge summary Author Mir Spencer [facility] May 12, 2023 12:17pm Note Date/Time May 12, 2023 1 2:16pm [facility] Physical Therapy [facility] [address] [place] [address] / REHABILITATION SERVICES DISCHARGE SUMMARY MR#: [id number] Acct: [id number] Name: AARON REYNOLDS Rep #: [id number] : 1960 62 From: Mir Spencer DPT, OCS, CSCS Referring Dr.: ATIF Mcneal Status: REG RCR Insurance: [employer] [employer] Discharge Summary D/C summary: It has been my pleasure to treat AARON REYNOLDS referred by ATIF Mcneal, with the diagnosis of L shoulder strain. for a total of 5 visit(s). Discharge Date: 05/12/23 Please see the following information for a summary of their discharge status. Subjective Subjective: No better. 80% of time is 4/10 ache in L upper arm and shoulder. Sleeping still very difficult. Not on meds for this. had prednisone initially. [facility] f[facility] Dr. Matson. Can do her basics at home with care. Trying to do everything. Pain L shoulder/arm: Pain Intensity (Out of 10): 2 Overall Improvement % Improvement: 0 Objective Objective/Function: Full aROM L UE but hesitant past 90 abduction adn flexion shoulder and slow. Good rotations and strength is 3+ flexion abd L and 4 rotations, elevation painful and rotations not so much. - drop arm, - ext rotation lag test. - labral clinical test However pain not improving despite decent strength and ROM. Goals Goal 1:: sleep without pain at night Goal 2:: Painfree at rest and 80% improved in overall pain to 1/10 at worst Goal 3:: I appropriate managment of condition with HEP Goal 4:: Work without inceased pain Goal 5:: quick dash score 15 or better. Plan Plan: Pt to doctor regarding lack of improvement in pain of L shoulder. d/c D/C Information Discharge Comments: to doctor for next medical step(MRI etc) Pt to cotninue HEP in the meantime. pt to call doctor Dano to schedule d/c sentence: If there are questions or concerns regarding this patient's physical therapy, please feel free to call me at [phone]. Thank you for the referral of thispatient. Sincerely, Mir Spencer, LENNIE, OCS, CSCS Balance/Gait/Functional tests Balance/Special Test Scores Quick DASH Score: 29.5450 Improvement % Improvement: 0 <Electronically signed by Mir Spencer DPT, OCS, CSCS> 05/12/23 1217 CC: Dr. Brandon Matson MD; ATIF Mcneal ~ EBG Signed [facility] Work Phone: [phone] 244-462403-20-2023 NoteHNO ID: [id number] Author: Derrick Singleton MD Service: ? Author Type: Physician Type: Progress Notes Filed: 08/23/2022 5:36 PM Note Text: Patient presents with: UTI: Burning, pelvic pain, blood,body aches, chills x 1 day HPI: Symptoms started today. Dysuria: Yes Frequency: Yes Hematuria: Yes Nausea: No Fever or chills: shaky chilled Back pain: No Abdominal pain: pelvic pressure Prior UTI: Yes, remotely Personal history of kidney stones: No Family history of kidney stones: No PAST MEDICAL HISTORY Diagnosis Date Essential hypertension, benign Migraines PAST SURGICAL HISTORY Procedure Laterality Date DILATION AND CURETTAGE DXAND/THER NONOBSTETRIC 06/06/1982 Dilation AND curettage LAPS SURG CHOLECYSTECTOMY W/CHOLANGIOGRAPHY 04/18/2012 with umbilical hernia repair TONSILLECTOMY PRIMARY/SECONDARY Tonsillectomy MEDICATIONS: Current Outpatient Medications Medication Sig olmesartn/hydrochlorothiazide(BENICAR HCT 20 MG-12.5 MG TAB) Take one(1) tablet daily. pantoprazole sodium(PROTONIX 40 MG TAB) Take one(1) tablet daily. No current facility-administered medications for this visit. ALLERGIES: ALLERGIES Allergen Reactions Penicillins Sulfa (Sulfonamide * Symmetral [Other] VITALS: BP 142/90 Pulse 70 Temp 36.6 ?C (97.8 ?F) Resp 20 Wt 84.6 kg (186 lb 6.4 oz) SpO2 100% PHYSICAL EXAM: GEN: NAD HEENT: EOMI, conjunctiva clear, HEART: regular rate and rhythm, no murmurs LUNGS: clear to auscultation, no wheezes or crackles, no increased WOB ABDOMEN: Soft, nondistended, no masses, no suprapubic tenderness BACK: No CVA tenderness ASSESSMENT/PLAN: 1. Burning with urination - ICD9: 788.1, ICD10: R30.0 - UA positive for maddison esterase and hematuria. Suspect UTI. - UA DIP, URINE (POC) - URINE CULTURE - NITROFURANTOIN MONOHYDRATE AND MACROCRYSTAL 100 MG ORAL CAP Patient advised to follow-up for reevaluation of hematuria if no infection is found on culture. Derrick Singleton, [facility]03-20-2023 History of Present illness Narrative* Derrick Singleton MD - 08/23/2022 5:27 PM EDT Patient presents with: UTI: Burning, pelvic pain, blood,body aches, chills x 1 day HPI: Symptoms started today. Dysuria: Yes Frequency: Yes Hematuria: Yes Nausea: No Fever or chills: shaky chilled Back pain: No Abdominal pain: pelvic pressure Prior UTI: Yes, remotely Personal history of kidney stones: No Family history of kidney stones: No PAST MEDICAL HISTORY Diagnosis Date Essential hypertension, benign Migraines PAST SURGICAL HISTORY Procedure Laterality Date DILATION & CURETTAGE DX&/THER NONOBSTETRIC 06/06/1982 Dilation & curettage LAPS SURG CHOLECYSTECTOMY W/CHOLANGIOGRAPHY 04/18/2012 with umbilical hernia repair TONSILLECTOMY PRIMARY/SECONDARY <AGE 12 06/06/1977 Tonsillectomy MEDICATIONS: Current Outpatient Medications Medication Sig olmesartn/hydrochlorothiazide(BENICAR HCT 20 MG-12.5 MG TAB) Take one(1) tablet daily. pantoprazole sodium(PROTONIX 40 MG TAB) Take one(1) tablet daily. No current facility-administered medications for this visit. ALLERGIES: ALLERGIES Allergen Reactions Penicillins Sulfa (Sulfonamide * Symmetral [Other] VITALS: BP 142/90 Pulse 70 Temp 36.6 C (97.8 F) Resp 20 Wt 84.6 kg (186 lb 6.4 oz) SpO2 100% PHYSICAL EXAM: GEN: NAD HEENT: EOMI, conjunctiva clear, HEART: regular rate and rhythm, no murmurs LUNGS: clear to auscultation, no wheezes or crackles, no increased WOB ABDOMEN: Soft, nondistended, no masses, no suprapubic tenderness BACK: No CVA tenderness ASSESSMENT/PLAN: 1. Burning with urination - ICD9: 788.1, ICD10: R30.0 - UA positive for maddison esterase and hematuria. Suspect UTI. - UA DIP, URINE (POC) - URINE CULTURE - NITROFURANTOIN MONOHYDRATE & MACROCRYSTAL 100 MG ORAL CAP Patient advised to follow-up for reevaluation of hematuria if no infection is found on culture. Derrick Singleton MD [facility] NotePap Smear Specimen AdequacyOctober 2021 8:20amComment.Satisfactory for evaluation. Endocervical and/or squamous metaplasticcells (endocervical component)are present.[facility]ACED A#[id number] [facility] Work Phone: Comment on above:Satisfactory for evaluation. Endocervical and/or squamous metaplasticcells (endocervical component)are present.Evaluation + Plan note No data available for this section [facility] Evaluation noteNo assessment information available [facility] Work Phone: Evaluation note* Diagnosis Burning with urination- Primary Dysuria [facility] Diagnosis Onset Date Resolution Status CKD (chronic kidney disease), stage III chronic GERD (gastroesophageal reflux disease) chronic Hypertension chronic Hyperuricemia without signs inflammatory arthritis/tophaceous disease chronic LUQ pain chronic Migraines chronic Obesity (BMI 30-39.9) chroni c Trigger finger chronic [facility] Work Phone: Evaluation note* Diagnosis Onset Date Resolution Status CKD (chronic kidney disease), stage III chronic GERD (gastroesophageal reflux disease) chronic Hypertension chronic Hyperuricemia without signs inflammatory arthritis/tophaceous disease chronic LUQ pain chronic Migraines chronic Obesity (BMI 30-39.9) chroni c Trigger finger chronic Gout chronic Hypertension chronic Migraines chronic [facility] Work Phone: Evaluation note* Diagnosis Onset Date Resolution Status Gout chronic Hypertension chronic Migraines chronic Left shoulder strain acute Strain of left elbow acute Pain of left upper extremity acute Gout chronic Hypertension chronic Migraines chronic [facility] Work Phone: Evaluation note* Diagnosis Onset Date Resolution Status Rotator cuff impingement syndrome of left shoulder acute [facility] Work Phone: Evaluation note* Diagnosis Onset Date Resolution Status Left shoulder strain acute Strain of left elbow acute Pain of left upper extremity acute Gout chronic Hypertension chronic Migraines chronic Rotator cuff impingement syndrome of left shoulder acute [facility] Work Phone: Hospital Discharge instructions No data available for this section [facility] Progress note No data available for this section [facility] Reason for referral (narrative)No reason for referral information availableWSelect Medical Special[facility] Work Phone: Chief Complaint and Reason for Visit Chief Complaint SCREENING Chief Complaint SCREENING BACK PAIN Chief Complaint new employee physica l Amb 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 LUQ PAIN Reason for Visit CKD (chronic kidney disease), stage III GERD (gastroesophageal reflux disease) Hypertension Hyperuricemia without signs inflammatory arthritis/tophaceous disease LUQ pain Migraines Obesity (BMI 30-39.9) Trigger finger Chief Complaint 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 LUQ PAIN 3 M FU Reason for Visit CKD (chronic kidney disease), stage III GERD (gastroesophageal reflux disease) Hypertension Hyperuricemia without signs inflammatory arthritis/tophaceous disease LUQ pain Migraines Obesity (BMI 30-39.9) Trigger finger Gout Hypertension Migraines Chief Complaint 3 M FU LEFT ARM INJURY/POST FALL EORDER FOLLOW UP L SHOULDER RX HERE Reason for Visit Gout Hypertension Migraines Left shoulder strain Strain of left elbow Pain of left upper extremity Gout Hypertension Migraines Chief Complaint L SHOULDER RX HERE ACUTE - FU ON ARM AFTER FALL SCREENING Reason for Visit Rotator cuff impinge ment syndrome of left shoulder Chief Complaint LEFT ARM INJURY/POST FALL EORDER FOLLOW UP L SHOULDER RX HERE ACUTE - FU ON ARM AFTER FALL Reason for Visit Left shoulder strain Strain of left elbow Pain of left upper extremity Gout Hypertension Migraines Rotator cuff impingement syndrome of left shoulder Chief Complaint Admit Date 3 M FU July 02, 2024 8 :19am screening for breast cancer September 05 9:30am Reason for Visit Admit Date Dyspnea July 02, 2024 8 :19am Gout July 02, 2024 8 :19am Hypertension July 02, 2024 8 :19am Migraines July 02, 2024 8 :19am Chief Complaint Admit Date screening for breast cancer September 05 9:30am 4 M FU November 22, 2024 6:04 pm Chief Complaint Admit Date screening for breast cancer September 05 9:30am 4 M FU November 22, 2024 6:04 pm Annual ([employer]) December 05, 2024 8:01a m Reason for Visit Admit Date Gout November 22, 2024 6:04 pm Hypertension November 22, 2024 6:04 pm Migraines November 22, 2024 6:04 pm Health care maintenance November 22, 2024 6:04pm Encounter for routine gynecological exam ination December 05, 2024 8:01am Family History No Family History Records Found Relationship Condition Age at Onset Recorded Date/T miya father Coronary artery disease Unknown Cardiac disease Unknown Myocardial infarction Unknown mother Coronary artery disease Unknown Diabetes mellitus Unknown Relationship Condition Age at Onset Recorded Date/T miya father Coronary artery disease Unknown Cardiac disease Unknown Myocardial infarction Unknown Cerebrovascular accident (CVA) Unknown Arthritis Unknown mother Coronary artery disease Unknown Myocardial infarction 68 Diabetes mellitus Unknown Malignant neoplasm Unknown Hypertension Unknown Malignant melanoma Unknown brother Malignant neoplasm Unknown Advance Directives No Advanced Directives Records Found Advance Directive Response Recorded Date/ Time Advance Directives No July 12, 2016 5:22pm Living Will No July 06 1:15pm Power of Stain Remover No July 06, 2017 1:15pm Advance Directive Response Recorded Date/ Time Advance Directives No July 12, 2016 4:22pm Living Will No July 06 12:15pm Power of Stain Remover No July 06, 2017 12:15pm Advance Directive Response Recorded Date/ Time Living Will No July 06 1:15pm Do you have a Healthcare Power of Stain Remover? No July 06, 2017 1:15pm Advance Directives No July 12, 2016 5:22pm Advance Directive Response Recorded Date/ Time Advance Directives No July 12, 2016 5:22pm Summary Purpose Additional Source Comments Goals (unrecognized section and content) Goals may be documented in a n alternate sectionGoals may be documented in an alternate sectionGoals may be documented in an alternate sectionGoals may be documented in an alternate sectionGoals may be documented in an alternate sectionGoals may be documented in an alternate section No data available for this sectionGoals may be documented in an alternate sectionGoals may be documented in an alternate sectionGoals may be documented in an alternate sectionGoals may be documented in an alternate section Source Comments (unrecognize d section and content) In the event this informatio n is protected by the Federal Confidentiality of Alcohol and Drug Abuse Patient Records regulations: The Federal rules restrict any use of the information to criminally investigate or prosecute any alcohol or drug abuse patient.[facility] Reason for Visit (unrecogniz ed section and content) Reason Comments UTI Burning, pelvic pain , blood,body aches, chills x 1 day INFORMATION SOURCE (unrecogn ized section and content) DATE CREATED AUTHOR 08/26/2022 [facility] DATE CREATED AUTHOR AUTHOR'S ORGANIZ ATION 12/20/2023 [facility] ([place]) DATE CREATED AUTHOR AUTHOR'S ORGANIZ ATION 12/07/2024 [facility] DATE CREATED AUTHOR AUTHOR'S ORGANIZ ATION 04/06/2025 [facility] Care Teams (unrecognized sec tion and content) Team Status: Active Member Role Status Dates Dr. Chad Carias MD Family Provider Active Dr. Brandon Matson MD Primary Care Provider Active Team Status: Inactive Member Role Status Dates Dr. Chad Carias MD Referring Provider Active Dr. Brandon Matson MD Primary Care Provider, Atten ding Provider Active Team Status: Active Member Role Status Dates Dr. Chad Carias MD Primary Care Provider Active Kasandra Michel Attending Provider Active Team Status: Active Member Role Status Dates Dr. Chad Carias MD Primary Care Provider Active Health Risk Assessment Attending Provider, Referring P rovider Active Team Status: Active Member Role Status Dates Dr. Brandon Matson MD Primary Care Provider Active Health Risk Assessment Attending Provider, Referring P rovider Active Team Status: Inactive Member Role Status Dates Dr. Brandon Matson MD Primary Care P rovider, Attending Provider, Referring Provider Active Team Status: Inactive Member Role Status Dates Dr. Brandon Matson MD Primary Care Provider, Atten ding Provider Active Team Status: Inactive Member Role Status Dates Dr. Brandon Matosn MD Primary Care Provider, Refer ring Provider Active Shilo SRIVASTAVA PA Attending Provider Active Team Status: Inactive Member Role Status Dates Dr. Brandon Matson MD Primary Care Provider Active Shilo SRIVASTAVA, PA Attending Provider, Referring Pr ovider Active Team Status: Active Member Role Status Dates Dr. Brandon Matson MD Primary Care Provider Active Shilo SRIVASTAVA PA Attending Provider, Referring Pr ovider Active Team Status: Inactive Member Role Status Dates Dr. Brandon Matson MD Primary Care Provider, Refer ring Provider Active ATIF Mcdonough Attending Provider Active Team Status: Inactive Member Role Status Dates Dr. Brandon Matson MD Primary Care Provider Active Stefanie Schuster NP-C Attending Provider, Referring Pro vider Active Team Status: Active Member Role Status Dates Dr. Brandon Matson MD Primary Care Provider Active Team Status: Inactive Member Role Status Dates Dr. Brandon Matson MD Primary Care Provider Active Start: July 02, 2024 End: July 02, 2024 Dr. Brandon Matson MD Attending Provider Active Start: July 02, 2024 End: July 02, 2024 Dr. Brandon Matson MD Referring Provider Active Start: July 02, 2024 End: July 02, 2024 Team Status: Inactive Member Role Status Dates Dr. Brandon Matson MD Primary Care Provider Active Start: September 05, 2024 End: September 05, 2024 Susan Urbina SURGICAL GARMENT FITTER, SURGICAL GARMENT FITTER-C Attending Provider Active Start: September 05, 2024 End: September 05, 2024 Susan Urbina SURGICAL GARMENT FITTER, SURGICAL GARMENT FITTER-C Referring Provider Active Start: September 05, 2024 End: September 05, 2024 Team Status: Active Member Role Status Dates Dr. Brandon Matson MD Primary Care Provider Active Start: November 19, 2024 Health Risk Assessment Attending Provider Active Start: November 19, 2024 Team Status: Inactive Member Role Status Dates Dr. Brandon Matson MD Primary Care Provider Active Start: November 22, 2024 End: November 22, 2024 Dr. Brandon Matson MD Attending Provider Active Start: November 22, 2024 End: November 22, 2024 Dr. Brandon Matson MD Referring Provider Active Start: November 22, 2024 End: November 22, 2024 Team Status: Active Member Role/Relationship Status Dates Dr. Brandon Matson MD Primary Care Provider Active Team Status: Inactive Member Role/Relationship Status Dates Dr. Brandon Matson MD Primary Care Provider Active Start: September 05, 2024 End: September 05, 2024 Susan Urbina SURGICAL GARMENT FITTER, SURGICAL GARMENT FITTER-C Attending Provider Active Start: September 05, 2024 End: September 05, 2024 Susan Urbina SURGICAL GARMENT FITTER, SURGICAL GARMENT FITTER-C Referring Provider Active Start: September 05, 2024 End: September 05, 2024 Team Status: Active Member Role/Relationship Status Dates Dr. Brandon Matson MD Primary Care Provider Active Start: November 19, 2024 Health Risk Assessment Attending Provider Active Start: November 19, 2024 Team Status: Inactive Member Role/Relationship Status Dates Dr. Brandon Matson MD Primary Care Provider Active Start: November 22, 2024 End: November 22, 2024 Dr. Brandon Matson MD Attending Provider Active Start: November 22, 2024 End: November 22, 2024 Dr. Brandon Matson MD Referring Provider Active Start: November 22, 2024 End: November 22, 2024 Team Status: Inactive Member Role/Relationship Status Dates Dr. Brandon Matson MD Primary Care Provider Active Start: December 05, 2024 End: December 05, 2024 Dr. Brandon Matson MD Referring Provider Active Start: December 05, 2024 End: December 05, 2024 Susan Urbina NP, BRYAN-C Attending Provider Active Start: December 05, 2024 End: December 05, 2024 FOR RECORDS PERTAINING TO PATIENTS WHO ARE OR HAVE BEEN ENROLLED IN A CHEMICAL DEPENDENCY/SUBSTANCEABUSE PROGRAM, SOME INFORMATION MAY BE OMITTED. This clinical summary was aggregated from multiple sources. Caution should be exercised in using it in the provision of clinical care. This summary normalizes information from multiple sources, and as a consequence, information in this document may materially change the coding, format and clinical context of patient data. In addition, data may be omitted in some cases. CLINICAL DECISIONS SHOULD BE BASED ON THE PRIMARY CLINICAL RECORDS. [employer] provides no warranty or guarantee of the accuracy or completeness of information in this document.
--- NOTE | 2025-05-16 12:41 | CA.SCORE ---
Calcium Scoring Date of Study:: 05/15/25 Indications Indications: Family history Coronary Calcium Scoring: High-resolution Computed Tomographic imaging of the chest was performed on [05/15/2025], with particular attention paid to the coronary arteries. Images from the examination were analyzed for the presence and extent of coronary artery calcification , using coronary calcium quantification software. The patient tolerated the procedure well and there were no complications. The results of the coronary calcification analysis are provided below. Findings Coronary Artery Left Main (LM): 0 Left Anterior Descending (LAD): 66.1 Left Circumflex (LCX): 6.23 Right Coronary Artery (RCA): 0 Total Agatston Score: 72.33 Percentile Rankin-75 Calcium Scoring Interpretation: Different methods to categorize the overall amount of coronary plaque. Overall amount CAC SIS Visual of coronary plaque P1 Mild -100 <2 1-2 vessels with mild amount of plaque P2 Moderate 101-300 3-4 1-2 vessels with moderate amount, 3 vessels with mild amount of plaque P3 Severe 301-999 5-7 3 vessels with moderate amount, 1 vessel with severe amount of plaque P4 Extensive >1000 >8 2-3 vessels with severe amount of plaque Calcium Score: Mild: 1-2 vessels w/mild amount of plaque Conclusion: Mild two-vessel atherosclerotic plaquing noted
== END | disposition home or self-care (01) ==
LOC: CT 06:47
PROVIDERS: PCP Internal Medicine; Referring Provider Internal Medicine; Visit Provider Internal Medicine
DX: Z98.890 Other specified postprocedural states (principal); Z82.49 Family history of ischemic heart disease and other diseases of the circulatory system; I10 Essential (primary) hypertension
CPT/HCPCS: 75571; 76380